=== PATIENT | male | born 1970 | race Caucasian/White ===

== ENCOUNTER 2022-11-09 19:57 | Inpatient (IN) | payer OTHER, SELFPAY ==
--- NOTE | ~2022-11-09 | CT_ITS ---
EXAMINATION: CT SOFT TISSUE NECK WITH CONTRAST CLINICAL INFORMATION: Left neck swelling and pain COMPARISON: None. TECHNIQUE: Following the administration of 60 mL of Omnipaque 350 intravenous contrast, helical imaging was performed in the axial plane with generation of coronal and sagittal reformatted images. This CT examination was performed using dose optimization techniques as appropriate, variously including the following: *Automated exposure control. *Adjustment of mA and/or kV according to patient size (this includes techniques or standardized protocols for targeted exams where dose is matched to indication/reason for exam; i.e. extremities or head). *Use of iterative reconstruction technique. DLP: 939 mGy-cm. FINDINGS: Nasopharynx/skull base: The fat planes of the skull base and soft tissues of the nasopharynx are unremarkable. Near complete opacification of the right mastoid air cells and middle ear cavity. Scattered mild paranasal sinus mucosal thickening. The temporomandibular joints are normal. Suprahyoid neck: The oral cavity and bilateral salivary glands are unremarkable. There is ill-defined submucosal edema involving the left pharyngeal wall at the junction of the oropharynx and hypopharynx (series 2 image 78) and involving the left aryepiglottic fold with effacement of the left piriform sinus. There is some mild adjacent inflammatory changes of the left parapharyngeal fat. No discrete drainable fluid collection is identified. There is enlargement of the palatine tonsils. Infrahyoid neck: The hypopharynx and larynx are unremarkable. No aerodigestive tract mass. Thyroid: The thyroid gland is normal. Lymph nodes: No pathologic lymphadenopathy by size criteria. Asymmetric prominence and number of left-sided cervical lymph nodes. Lung apices: The partially visualized lung apices are clear. Vascular structures: The internal jugular veins are patent. The carotid arteries are not well evaluated due to the degree of arterial contrast opacification Osseous structures: The osseous structures are intact without suspicious focal lesion. Mild to moderate multilevel cervical spondylosis. Other: The imaged portions of the brain parenchyma are unremarkable. CT/CT soft tissue neck w IV con IMPRESSION: Ill-defined submucosal edema involving the left lateral hypopharyngeal wall, epiglottis, aryepiglottic fold with mild inflammatory fat stranding of the parapharyngeal fat which may reflect an acute infectious etiology. No drainable fluid collection in the neck is identified. There are no pathologically enlarged cervical lymph nodes however asymmetric prominence of the left cervical lymph nodes are likely reactive. Bilateral tonsillar enlargement is also likely reactive. No evidence of peritonsillar abscess. Above impression was communicated to DARIAN Smith on 11/09/2022 at 10:45 PM.
--- NOTE | ~2022-11-09 | CT_ITS ---
EXAMINATION: CT SOFT TISSUE NECK WITH CONTRAST CLINICAL INFORMATION: Left neck swelling and pain COMPARISON: CT of the neck 11/09/2022 TECHNIQUE: Following the intravenous administration of 60 mL of Omnipaque 350 intravenous contrast, helical imaging was performed in the axial plane with generation of coronal and sagittal reformatted images. This CT examination was performed using dose optimization techniques as appropriate, variously including the following: *Automated exposure control *Adjustment of mA and/or kV according to patient size (this includes techniques or standardized protocols for targeted exams where dose is matched to indication/reason for exam; i.e. extremities or head) *Use of iterative reconstruction technique DLP: 333 mGy-cm FINDINGS: Suboptimal contrast opacification. Redemonstrated submucosal edema and swelling in the region of the left lateral hypopharynx with effacement of the piriform sinus and extending along the left aryepiglottic fold and left aspect of the epiglottis. Overall, the extent of the changes are similar to prior however, there is new mild inflammatory fat stranding extending posterior to the hypopharynx in the retropharyngeal space as well as laterally series 2 image 84 and image 83. Normal appearance of the glottis and subglottic trachea. Similar narrowing of the airway caliber at the level of the hypopharynx. Major salivary glands and thyroid gland are unremarkable. Unchanged appearance of few prominent upper cervical lymph nodes multiple small subcentimeter short axis dimension and lower cervical lymph nodes. No loculated fluid collection to suggest abscess. Some asymmetric enlargement and subtle low-density in the left pontine tonsil, possibly phlegmon or developing small abscess. Globes and retro-orbital structures are intact. Visualized intracranial contents grossly unremarkable, limited assessment. Visualized upper lungs appear clear. Mild mucosal thickening within ethmoid sinuses, maxillary sinuses and left sphenoid sinus. Right mastoid and middle ear effusions redemonstrated. No bony septal destruction. No acute fracture or suspicious osseous lesion. Moderate multilevel cervical spondylosis at C4-C5 through C6-C7. CT/CT soft tissue neck w IV con IMPRESSION: 1. Redemonstrated submucosal edema and swelling in the region of the left lateral hypopharynx extending along the left aryepiglottic fold and left aspect of the epiglottis, overall similar in extent to prior, however there is new mild inflammatory fat stranding extending lateral and posterior to the left hypopharynx into the retropharyngeal space. Findings presumably represent acute inflammatory or infectious process. 2. No formed/loculated fluid collection to suggest abscess. 3. Unchanged mild upper cervical lymphadenopathy, likely reactive. 4. Unchanged right mastoid and middle ear effusions. 5. Mild asymmetric prominence of the left palatine tonsil with subtle low-density consistent with tonsillar inflammation possibly phlegmon or early developing peritonsillar abscess.
[2022-11-09 20:17] VITALS: BP 150/103; PULSE 100; RESP 20; TEMP 36.8; O2SAT 96; BMI 39.4
--- NOTE | 2022-11-09 20:21 | ED.URI ---
HPI - URI/Sore Throat General Chief Complaint: General Medical <Carrie Rivera NP - Last Filed: 11/09/22 20:29> Stated Complaint: swollen glands, difficulty breathing <Carrie Rivera NP - Last Filed: 11/09/22 20:29> Time Seen by Provider: 11/09/22 22:28 <Carrie Rivera NP - Last Filed: 11/09/22 20:29> Source: patient <Anamaria Leal NP - Last Filed: 11/10/22 03:23> Mode of arrival: ambulatory <ZOË Hernandez Last Filed: 11/10/22 03:23> Limitations: no limitations <ZOË Hernandez Last Filed: 11/10/22 03:23> History of Present Illness HPI Narrative: 52-year-old male presents with 3 days of sore throat, left-sided neck swelling, and change in voice. He states that it is difficult to swallow, and that he has been coughing every time he tried to swallow saliva. He does not report fevers or chills, nausea, vomiting, abdominal pain, chest pain or pressure, palpitations, and weakness. <Anamaria Leal NP - Last Filed: 11/10/22 03:23> MD elicited complaint: cough and sore throat <Anamaria Leal NP - Last Filed: 11/10/22 03:23> Onset (ago): day(s) (3) <Anamaria Leal NP - Last Filed: 11/10/22 03:23> Consistency: constant and progressively worsening <Anamaria Leal NP - Last Filed: 11/10/22 03:23> Severity: severe <ZOË Hernandez Last Filed: 11/10/22 03:23> Pain scale (0-10): 9 <Anamaria Leal NP - Last Filed: 11/10/22 03:23> Description of mucous: clear <Anamaria Leal NP - Last Filed: 11/10/22 03:23> Able to tolerate fluids by mouth: No <ZOË Hernandez Last Filed: 11/10/22 03:23> Exacerbating factors: swallowing and speaking <ZOË Hernandez Last Filed: 11/10/22 03:23> Relieving factors: nothing <ZOË Hernandez Last Filed: 11/10/22 03:23> Associated symptoms: voice changes, sore throat and cough <ZOË Hernandez Last Filed: 11/10/22 03:23> Treatments prior to arrival: cold medicine <ZOË Hernandez Last Filed: 11/10/22 03:23> Related Data Home Medications: Home Medications Medication Instructions Recorded Confirmed benazepril 40 mg tablet 1 tab PO DAILY 11/10/22 11/10/22 glipizide 5 mg-metformin 500 mg 1 tab PO BID 11/10/22 11/10/22 tablet hydrochlorothiazide 25 mg tablet 1 tab PO DAILY 11/10/22 11/10/22 <ZOË Carmen Last Filed: 11/09/22 20:29> Allergies/Adverse Reactions: Allergies Allergy/AdvReac Type Severity Reaction Status Date / Time albuterol Allergy Swelling Verified 11/09/22 20:26 <ZOË Carmen Last Filed: 11/09/22 20:29> Review of Systems Review of Systems: Constitutional: No Fever, No Chills ENT/Mouth: No Ear Pain, positive voice change, positive sore throat Eyes: No Eye Pain, No Swelling, No Redness, No Foreign Body Cardiovascular: No Chest Pain, No SOB Respiratory: Positive Cough, No Dyspnea Gastrointestinal: No Nausea, No Vomiting, No Diarrhea, No abdominal Pain Genitourinary: No Dysuria, No Hematuria Musculoskeletal: No joint pain, No Myalgias, No Joint Swelling Skin: No Skin lacerations, No rash Neuro: No Weakness, No Numbness, No Dizziness, No Headache <ZOË Hernandez Last Filed: 11/10/22 03:23> Yes all other systems are reviewed and are negative <ZOË Hernandez Last Filed: 11/10/22 03:23> [facility] Past Medical History Attestation statement: The following information was validated with the patient. <ZOË Hernandez Last Filed: 11/10/22 03:23> Source: old records reviewed <ZOË Hernandez Filed: 11/10/22 03:23> Social History Social History: Social History Household Members: Family Housing: House Do you presently have visiting nurse or other home services: No Patient Tobacco Use Status: Current everyday Tobacco user Use of substances other than those prescribed or required for medical reasons: No Substance Use Type: Marijuana Substance Use Frequency: Daily Have you been hit, kicked, punched, or otherwise hurt by someone within the past year? If so, by whom?: No Do you feel safe in your current relationship?: Yes Is there a partner from a previous relationship who is making you feel unsafe now?: No Are you made to feel afraid or neglected: No Advance Directives: No Advance Directives Information Provided: No Do you have thoughts of harming others: None Do you have a plan to hurt others: No Plan Recently lost weight without trying: No Nutrition Risks: Difficulty swallowing Poor oral hygiene: No <Carrie Rivera NP - Last Filed: 11/09/22 20:29> Physical Exam Vital Signs: Vital Signs: Last Vital Signs Temp 97.6 F 11/09/22 23:33 Pulse 84 11/10/22 02:54 Resp 15 11/10/22 02:54 BP 141/98 H 11/10/22 02:54 Pulse Ox 95 11/10/22 02:54 O2 Del Method 11/10/22 02:54 BMI result Body Mass Index 39.4 <Carrie Rivera NP - Last Filed: 11/09/22 20:29> Vital Signs: Last Vital Signs Temp 97.6 F 11/09/22 23:33 Pulse 84 11/10/22 02:54 Resp 15 11/10/22 02:54 BP 141/98 H 11/10/22 02:54 Pulse Ox 95 11/10/22 02:54 O2 Del Method 11/10/22 02:54 BMI result Body Mass Index 39.4 <Anamaria Leal NP - Last Filed: 11/10/22 03:23> Appearance: Alert. Oriented X3. Moderate distress. Eyes: Pupils equal, round and reactive to light. ENT: Bilateral tonsillar swelling, hot potato voice. Centor scale 4. Mallampati 4. Bilateral neck swelling with cervical lymphadenopathy. No mastoid tender Neck: Neck supple. No vertebral tenderness or step-offs. CVS: Tachycardic heart rate and rhythm. Pulses normal. Respiratory: No respiratory distress. Lung sounds clear. No tracheal stridor. Abdomen: Soft and nontender. Skin: Skin warm and dry. Normal skin color. Normal skin turgor. Extremities: No lower extremity edema. Gait balance and coordinated. Neuro: No motor deficit. No sensory deficit. Cranial nerves 2-12 intact. <Anamaria Leal NP - Last Filed: 11/10/22 03:23> Course Course Course Narrative: This is a rapid medical exam. Deferred additional HPI, ROS, PE to primary provider. 52 yo male DM, HTN here with swollen glands, left sided sore throat/neck swelling x 3 days. Patient reports when he lays flat he has difficulty tolerating his secretions. He has not had any fevers or chills. On exam patient had left neck swelling, bilateral tonsillar erythema/swelling L>R. Patient to brought in to ER. Ordered labs, viral testing, CT soft tissue neck. <Carrie Rivera ROOF PROMENADE TILE SETTER - Last Filed: 11/09/22 20:29> This is a rapid medical exam. Deferred additional HPI, ROS, PE to primary provider. 52 yo male DM, HTN here with swollen glands, left sided sore throat/neck swelling x 3 days. Patient reports when he lays flat he has difficulty tolerating his secretions. He has not had any fevers or chills. On exam patient had left neck swelling, bilateral tonsillar erythema/swelling L>R. Patient to brought in to ER. Ordered labs, viral testing, CT soft tissue neck. 52-year-old male presents for sore throat, and neck swelling. States that he has a difficult time swallowing, and feels like he is choking. Was given dexamethasone by provider in triage, states that his swallowing is a little better. He does have a hot potato voice, Mallampati 4, Centor scale for, tonsils are so swollen and erythematous that they are touching. Has posterior anterior cervical lymphadenopathy. No mastoid tenderness. Has full range of motion to his neck. CT scan of soft tissue neck is pending. White count is 17.0, order for ceftriaxone and fluids. Radiologist called to discuss findings, no indication of abscess however there is edema of the hypopharynx and epiglottis concerning for possible epiglottitis and severe pharyngitis. I did discuss this case with hospitalist, hospitalist feels uncomfortable accepting this patient due to high risk of airway obstruction. Discussion with data entry manager, Dr. Ayoub, discussed white count of 17.0, and CT findings, plan of care is to admit to ICU. Courtesy Car Driver PA at bedside, requesting Zosyn and vancomycin, ordered. I did discuss findings with patient, I discussed the concern for high risk of airway obstruction. Plan of care is to admit to ICU. <Anamaria Leal NP - Last Filed: 11/10/22 03:23> Consultations Consultation #1: Anitra <Anamaria Leal NP - Last Filed: 11/10/22 03:23> Medications Administered Generic Name Dose Route Start Last Admin Trade Name Freq PRN Reason Stop Dose Admin Enoxaparin Sodium 40 mg 11/10/22 00:30 11/10/22 00:56 Enoxaparin Sodium 40 Mg/0.4 Ml Syringe SUBCUT 40 mg Q24H SWAPNA Administration Sodium Chloride 1,000 mls @ 100 mls/hr 11/10/22 00:30 11/10/22 00:51 Ns IVCONT 100 mls/hr .Q10H SWAPNA Administration Insulin Human Lispro 0 unit 11/09/22 23:45 11/10/22 01:07 Insulin Lispro 100 Unit/Ml 3 Ml Vial SUBCUT Not Given Q6H SWAPNA Protocol Discontinued Medications Generic Name Dose Route Start Last Admin Trade Name Freq PRN Reason Stop Dose Admin Dexamethasone 10 mg 11/09/22 20:25 11/09/22 21:02 Dexamethasone 2 Mg Tablet PO 11/09/22 20:26 10 mg ONCE ONE Administration Sodium Chloride 1,000 mls @ 999 mls/hr 11/09/22 20:25 11/10/22 00:44 Ns IV 11/09/22 21:25 Infused .Q1H1M STA Infusion Sodium Chloride 1,000 mls @ 999 mls/hr 11/09/22 22:30 11/10/22 00:44 Ns IVCONT 11/09/22 23:30 Infused .Q1H1M SWAPNA Infusion Ceftriaxone Sodium 1 gm/ 50 mls @ 100 mls/hr 11/09/22 22:29 11/10/22 00:32 Sodium Chloride IV 11/09/22 22:58 Infused ONCE ONE Infusion Piperacillin Sod/Tazobactam 50 mls @ 100 mls/hr 11/09/22 23:32 11/10/22 00:44 Sod 3.375 gm/ Sodium Chloride IV 11/10/22 00:01 Infused ONCE ONE Infusion Vancomycin HCl 2,000 mg in 520 mls @ 260 mls/hr 11/09/22 23:32 11/10/22 00:51 Vancomycin/Ns IV 11/10/22 01:31 260 mls/hr ONCE ONE Administration Iohexol 100 ml 11/09/22 22:03 11/09/22 22:04 Iohexol 350 Mg/Ml 100 Ml Infus..Btl IV 11/09/22 22:04 65 ml ONCE ONE Administration Ketorolac Tromethamine 30 mg 11/09/22 20:25 11/09/22 21:02 Ketorolac Tromethamine 30 Mg/Ml Vial IVPUSH 11/09/22 20:26 30 mg ONCE ONE Administration <Carrie Rivera ROOF PROMENADE TILE SETTER - Last Filed: 11/09/22 20:29> Medications Administered Generic Name Dose Route Start Last Admin Trade Name Freq PRN Reason Stop Dose Admin Enoxaparin Sodium 40 mg 11/10/22 00:30 11/10/22 00:56 Enoxaparin Sodium 40 Mg/0.4 Ml Syringe SUBCUT 40 mg Q24H SWAPNA Administration Sodium Chloride 1,000 mls @ 100 mls/hr 11/10/22 00:30 11/10/22 00:51 Ns IVCONT 100 mls/hr .Q10H SWAPNA Administration Insulin Human Lispro 0 unit 11/09/22 23:45 11/10/22 01:07 Insulin Lispro 100 Unit/Ml 3 Ml Vial SUBCUT Not Given Q6H [facility] Protocol Discontinued Medications Generic Name Dose Route Start Last Admin Trade Name Freq PRN Reason Stop Dose Admin Dexamethasone 10 mg 11/09/22 20:25 11/09/22 21:02 Dexamethasone 2 Mg Tablet PO 11/09/22 20:26 10 mg ONCE ONE Administration Sodium Chloride 1,000 mls @ 999 mls/hr 11/09/22 20:25 11/10/22 00:44 Ns IV 11/09/22 21:25 Infused .Q1H1M STA Infusion Sodium Chloride 1,000 mls @ 999 mls/hr 11/09/22 22:30 11/10/22 00:44 Ns IVCONT 11/09/22 23:30 Infused .Q1H1M SWAPNA Infusion Ceftriaxone Sodium 1 gm/ 50 mls @ 100 mls/hr 11/09/22 22:29 11/10/22 00:32 Sodium Chloride IV 11/09/22 22:58 Infused ONCE ONE Infusion Piperacillin Sod/Tazobactam 50 mls @ 100 mls/hr 11/09/22 23:32 11/10/22 00:44 Sod 3.375 gm/ Sodium Chloride IV 11/10/22 00:01 Infused ONCE ONE Infusion Vancomycin HCl 2,000 mg in 520 mls @ 260 mls/hr 11/09/22 23:32 11/10/22 00:51 Vancomycin/Ns IV 11/10/22 01:31 260 mls/hr ONCE ONE Administration Iohexol 100 ml 11/09/22 22:03 11/09/22 22:04 Iohexol 350 Mg/Ml 100 Ml Infus..Btl IV 11/09/22 22:04 65 ml ONCE ONE Administration Ketorolac Tromethamine 30 mg 11/09/22 20:25 11/09/22 21:02 Ketorolac Tromethamine 30 Mg/Ml Vial IVPUSH 11/09/22 20:26 30 mg ONCE ONE Administration <Anamaria Leal NP - Last Filed: 11/10/22 03:23> Medical Decision Making Differential Diagnosis Differential Diagnoses: The differential diagnosis associated with the presentation includes <Anamaria Leal NP - Last Filed: 11/10/22 03:23> Pharyngitis, epiglottitis, peritonsillar abscess, angioedema <Anamaria Leal NP - Last Filed: 11/10/22 03:23> Admission/Observation Consideration of admission/observation: Escalation of care including admission/observation considered <Anamaria Leal NP - Last Filed: 11/10/22 03:23> Patient requires admission <Anamaria Leal NP - Last Filed: 11/10/22 03:23> Consult Healthcare Provider Management of the patient was discussed with: Hospitalist and Classics Teacher <Anamaria Leal NP - Last Filed: 11/10/22 03:23> Courtesy Car Driver <Anamaria Leal ROOF PROMENADE TILE SETTER - Last Filed: 11/10/22 03:23> Lab Data MDM Lab Attestation statement: I reviewed the patient's lab results. <Anamaria Leal ROOF PROMENADE TILE SETTER - Last Filed: 11/10/22 03:23> Result Diagrams: 11/09/22 20:49 11/09/22 20:50 <Carrie Rivera ROOF PROMENADE TILE SETTER - Last Filed: 11/09/22 20:29> Labs: Lab Results 11/09/22 11/09/22 11/09/22 Range/Units 20:49 20:49 20:49 WBC 17.0 H (4.8-10.8) X10*3/uL RBC 5.19 (4.60-5.80) X10*6/uL Hgb 15.5 (14.0-18.0) g/dl Hct 46.1 (42.0-52.0) % MCV 88.8 (80.0-98.0) fL MCH 29.9 (27.0-33.0) pg MCHC 33.6 (31.0-36.0) g/dl RDW 13.2 (11.0-16.0) % Plt Count 242 (160-400) X10*3/uL MPV 9.1 L (9.4-12.4) fL Immature Gran % (Auto) 0.5 H (0.0-0.4) % Neut % (Auto) 66.3 (45-73) % Lymph % (Auto) 25.8 (20-40) % [place] % (Auto) 6.4 (2-11) % Eos % (Auto) 0.7 (0-4) % Baso % (Auto) 0.3 (0-2) % Lymph # (Auto) 4.4 (1.2-4.9) X10*3/uL [place] # (Auto) 1.1 (0.1-1.2) X10*3/uL Eos # (Auto) 0.1 (0.0-0.4) X10*3/uL Baso # (Auto) 0.1 (0.0-0.2) X10*3/uL Abs Immat Gran (auto) 0.09 H (0.00-0.03) X10*3/uL Absolute Neuts (auto) 11.2 H (2.0-8.3) x10*3/uL Absolute Nucleated RBC 0.000 (0.0-0.012) X10*3/uL Nucleated RBC % (auto) 0.0 (0.0-0.2) /100WBC Smear Tech's Comments VERIFIED Sodium (135-145) mmol/L Potassium (3.3-5.1) mmol/L Chloride (96-108) mmol/L Carbon Dioxide (22-29) mmol/L Anion Gap (12-20) BUN (9-16) mg/dL Creatinine (0.5-1.4) mg/dL Estim Creat Clear Calc Estimated GFR Random Glucose (60-115) mg/dL Lactic Acid 1.0 (0.5-2.0) mmol/L Calcium (8.4-10.2) mg/dL Total Bilirubin (0.0-1.0) mg/dL Direct Bilirubin (0.0-0.5) mg/dL AST (5-37) U/L ALT (0-40) U/L Alkaline Phosphatase (39-117) U/L Total Protein (6.5-8.0) g/dL Albumin (3.5-5.0) g/dL Monoscreen Negative (Negative) Influenza Type A (PCR) (Negative) Influenza Type B (PCR) (Negative) RSV RNA Qual (PCR) (Negative) SARS-CoV-2 RNA (RT-PCR) (Negative) S. pyogenes GrpA REMA (Negative) 11/09/22 11/09/22 11/09/22 Range/Units 20:50 20:50 20:56 WBC (4.8-10.8) X10*3/uL RBC (4.60-5.80) X10*6/uL Hgb (14.0-18.0) g/dl Hct (42.0-52.0) % MCV (80.0-98.0) fL MCH (27.0-33.0) pg MCHC (31.0-36.0) g/dl RDW (11.0-16.0) % Plt Count (160-400) X10*3/uL MPV (9.4-12.4) fL Immature Gran % (Auto) (0.0-0.4) % Neut % (Auto) (45-73) % Lymph % (Auto) (20-40) % [place] % (Auto) (2-11) % Eos % (Auto) (0-4) % Baso % (Auto) (0-2) % Lymph # (Auto) (1.2-4.9) X10*3/uL [place] # (Auto) (0.1-1.2) X10*3/uL Eos # (Auto) (0.0-0.4) X10*3/uL Baso # (Auto) (0.0-0.2) X10*3/uL Abs Immat Gran (auto) (0.00-0.03) X10*3/uL Absolute Neuts (auto) (2.0-8.3) x10*3/uL Absolute Nucleated RBC (0.0-0.012) X10*3/uL Nucleated RBC % (auto) (0.0-0.2) /100WBC Smear Tech's Comments Sodium 137 (135-145) mmol/L Potassium 4.8 (3.3-5.1) mmol/L Chloride 101 (96-108) mmol/L Carbon Dioxide 21 L (22-29) mmol/L Anion Gap 20 (12-20) BUN 22 H (9-16) mg/dL Creatinine 1.13 (0.5-1.4) mg/dL Estim Creat Clear Calc 115.3 Estimated GFR > 60 Random Glucose 146 H (60-115) mg/dL Lactic Acid (0.5-2.0) mmol/L Calcium 9.3 (8.4-10.2) mg/dL Total Bilirubin 0.4 (0.0-1.0) mg/dL Direct Bilirubin < 0.2 (0.0-0.5) mg/dL AST 25 (5-37) U/L ALT 29 (0-40) U/L Alkaline Phosphatase 78 (39-117) U/L Total Protein 7.7 (6.5-8.0) g/dL Albumin 4.5 (3.5-5.0) g/dL Monoscreen (Negative) Influenza Type A (PCR) NEGATIVE (Negative) Influenza Type B (PCR) NEGATIVE (Negative) RSV RNA Qual (PCR) NEGATIVE (Negative) SARS-CoV-2 RNA (RT-PCR) NEGATIVE (Negative) S. pyogenes GrpA REMA Negative (Negative) 11/09/22 Range/Units 23:00 WBC (4.8-10.8) X10*3/uL RBC (4.60-5.80) X10*6/uL Hgb (14.0-18.0) g/dl Hct (42.0-52.0) % MCV (80.0-98.0) fL MCH (27.0-33.0) pg MCHC (31.0-36.0) g/dl RDW (11.0-16.0) % Plt Count (160-400) X10*3/uL MPV (9.4-12.4) fL Immature Gran % (Auto) (0.0-0.4) % Neut % (Auto) (45-73) % Lymph % (Auto) (20-40) % [place] % (Auto) (2-11) % Eos % (Auto) (0-4) % Baso % (Auto) (0-2) % Lymph # (Auto) (1.2-4.9) X10*3/uL [place] # (Auto) (0.1-1.2) X10*3/uL Eos # (Auto) (0.0-0.4) X10*3/uL Baso # (Auto) (0.0-0.2) X10*3/uL Abs Immat Gran (auto) (0.00-0.03) X10*3/uL Absolute Neuts (auto) (2.0-8.3) x10*3/uL Absolute Nucleated RBC (0.0-0.012) X10*3/uL Nucleated RBC % (auto) (0.0-0.2) /100WBC Smear Tech's Comments Sodium (135-145) mmol/L Potassium (3.3-5.1) mmol/L Chloride (96-108) mmol/L Carbon Dioxide (22-29) mmol/L Anion Gap (12-20) BUN (9-16) mg/dL Creatinine (0.5-1.4) mg/dL Estim Creat Clear Calc Estimated GFR Random Glucose (60-115) mg/dL Lactic Acid 1.1 (0.5-2.0) mmol/L Calcium (8.4-10.2) mg/dL Total Bilirubin (0.0-1.0) mg/dL Direct Bilirubin (0.0-0.5) mg/dL AST (5-37) U/L ALT (0-40) U/L Alkaline Phosphatase (39-117) U/L Total Protein (6.5-8.0) g/dL Albumin (3.5-5.0) g/dL Monoscreen (Negative) Influenza Type A (PCR) (Negative) Influenza Type B (PCR) (Negative) RSV RNA Qual (PCR) (Negative) SARS-CoV-2 RNA (RT-PCR) (Negative) S. pyogenes GrpA REMA (Negative) <Carrie Rivera, ROOF PROMENADE TILE SETTER - Last Filed: 11/09/22 20:29> Lab Results 11/09/22 11/09/22 11/09/22 Range/Units 20:49 20:49 20:49 WBC 17.0 H (4.8-10.8) X10*3/uL RBC 5.19 (4.60-5.80) X10*6/uL Hgb 15.5 (14.0-18.0) g/dl Hct 46.1 (42.0-52.0) % MCV 88.8 (80.0-98.0) fL MCH 29.9 (27.0-33.0) pg MCHC 33.6 (31.0-36.0) g/dl RDW 13.2 (11.0-16.0) % Plt Count 242 (160-400) X10*3/uL MPV 9.1 L (9.4-12.4) fL Immature Gran % (Auto) 0.5 H (0.0-0.4) % Neut % (Auto) 66.3 (45-73) % Lymph % (Auto) 25.8 (20-40) % [place] % (Auto) 6.4 (2-11) % Eos % (Auto) 0.7 (0-4) % Baso % (Auto) 0.3 (0-2) % Lymph # (Auto) 4.4 (1.2-4.9) X10*3/uL [place] # (Auto) 1.1 (0.1-1.2) X10*3/uL Eos # (Auto) 0.1 (0.0-0.4) X10*3/uL Baso # (Auto) 0.1 (0.0-0.2) X10*3/uL Abs Immat Gran (auto) 0.09 H (0.00-0.03) X10*3/uL Absolute Neuts (auto) 11.2 H (2.0-8.3) x10*3/uL Absolute Nucleated RBC 0.000 (0.0-0.012) X10*3/uL Nucleated RBC % (auto) 0.0 (0.0-0.2) /100WBC Smear Tech's Comments VERIFIED Sodium (135-145) mmol/L Potassium (3.3-5.1) mmol/L Chloride (96-108) mmol/L Carbon Dioxide (22-29) mmol/L Anion Gap (12-20) BUN (9-16) mg/dL Creatinine (0.5-1.4) mg/dL Estim Creat Clear Calc Estimated GFR Random Glucose (60-115) mg/dL Lactic Acid 1.0 (0.5-2.0) mmol/L Calcium (8.4-10.2) mg/dL Total Bilirubin (0.0-1.0) mg/dL Direct Bilirubin (0.0-0.5) mg/dL AST (5-37) U/L ALT (0-40) U/L Alkaline Phosphatase (39-117) U/L Total Protein (6.5-8.0) g/dL Albumin (3.5-5.0) g/dL Monoscreen Negative (Negative) Influenza Type A (PCR) (Negative) Influenza Type B (PCR) (Negative) RSV RNA Qual (PCR) (Negative) SARS-CoV-2 RNA (RT-PCR) (Negative) S. pyogenes GrpA REMA (Negative) 11/09/22 11/09/22 11/09/22 Range/Units 20:50 20:50 20:56 WBC (4.8-10.8) X10*3/uL RBC (4.60-5.80) X10*6/uL Hgb (14.0-18.0) g/dl Hct (42.0-52.0) % MCV (80.0-98.0) fL MCH (27.0-33.0) pg MCHC (31.0-36.0) g/dl RDW (11.0-16.0) % Plt Count (160-400) X10*3/uL MPV (9.4-12.4) fL Immature Gran % (Auto) (0.0-0.4) % Neut % (Auto) (45-73) % Lymph % (Auto) (20-40) % [place] % (Auto) (2-11) % Eos % (Auto) (0-4) % Baso % (Auto) (0-2) % Lymph # (Auto) (1.2-4.9) X10*3/uL [place] # (Auto) (0.1-1.2) X10*3/uL Eos # (Auto) (0.0-0.4) X10*3/uL Baso # (Auto) (0.0-0.2) X10*3/uL Abs Immat Gran (auto) (0.00-0.03) X10*3/uL Absolute Neuts (auto) (2.0-8.3) x10*3/uL Absolute Nucleated RBC (0.0-0.012) X10*3/uL Nucleated RBC % (auto) (0.0-0.2) /100WBC Smear Tech's Comments Sodium 137 (135-145) mmol/L Potassium 4.8 (3.3-5.1) mmol/L Chloride 101 (96-108) mmol/L Carbon Dioxide 21 L (22-29) mmol/L Anion Gap 20 (12-20) BUN 22 H (9-16) mg/dL Creatinine 1.13 (0.5-1.4) mg/dL Estim Creat Clear Calc 115.3 Estimated GFR > 60 Random Glucose 146 H (60-115) mg/dL Lactic Acid (0.5-2.0) mmol/L Calcium 9.3 (8.4-10.2) mg/dL Total Bilirubin 0.4 (0.0-1.0) mg/dL Direct Bilirubin < 0.2 (0.0-0.5) mg/dL AST 25 (5-37) U/L ALT 29 (0-40) U/L Alkaline Phosphatase 78 (39-117) U/L Total Protein 7.7 (6.5-8.0) g/dL Albumin 4.5 (3.5-5.0) g/dL Monoscreen (Negative) Influenza Type A (PCR) NEGATIVE (Negative) Influenza Type B (PCR) NEGATIVE (Negative) RSV RNA Qual (PCR) NEGATIVE (Negative) SARS-CoV-2 RNA (RT-PCR) NEGATIVE (Negative) S. pyogenes GrpA REMA Negative (Negative) 11/09/22 Range/Units 23:00 WBC (4.8-10.8) X10*3/uL RBC (4.60-5.80) X10*6/uL Hgb (14.0-18.0) g/dl Hct (42.0-52.0) % MCV (80.0-98.0) fL MCH (27.0-33.0) pg MCHC (31.0-36.0) g/dl RDW (11.0-16.0) % Plt Count (160-400) X10*3/uL MPV (9.4-12.4) fL Immature Gran % (Auto) (0.0-0.4) % Neut % (Auto) (45-73) % Lymph % (Auto) (20-40) % [place] % (Auto) (2-11) % Eos % (Auto) (0-4) % Baso % (Auto) (0-2) % Lymph # (Auto) (1.2-4.9) X10*3/uL [place] # (Auto) (0.1-1.2) X10*3/uL Eos # (Auto) (0.0-0.4) X10*3/uL Baso # (Auto) (0.0-0.2) X10*3/uL Abs Immat Gran (auto) (0.00-0.03) X10*3/uL Absolute Neuts (auto) (2.0-8.3) x10*3/uL Absolute Nucleated RBC (0.0-0.012) X10*3/uL Nucleated RBC % (auto) (0.0-0.2) /100WBC Smear Tech's Comments Sodium (135-145) mmol/L Potassium (3.3-5.1) mmol/L Chloride (96-108) mmol/L Carbon Dioxide (22-29) mmol/L Anion Gap (12-20) BUN (9-16) mg/dL Creatinine (0.5-1.4) mg/dL Estim Creat Clear Calc Estimated GFR Random Glucose (60-115) mg/dL Lactic Acid 1.1 (0.5-2.0) mmol/L Calcium (8.4-10.2) mg/dL Total Bilirubin (0.0-1.0) mg/dL Direct Bilirubin (0.0-0.5) mg/dL AST (5-37) U/L ALT (0-40) U/L Alkaline Phosphatase (39-117) U/L Total Protein (6.5-8.0) g/dL Albumin (3.5-5.0) g/dL Monoscreen (Negative) Influenza Type A (PCR) (Negative) Influenza Type B (PCR) (Negative) RSV RNA Qual (PCR) (Negative) SARS-CoV-2 RNA (RT-PCR) (Negative) S. pyogenes GrpA REMA (Negative) <Anamaria Leal NP - Last Filed: 11/10/22 03:23> Independent Interpretation I performed an independent interpretation of an: CT Scan <Anamaria Leal NP - Last Filed: 11/10/22 03:23> Radiology Impression Discussion of test interpretation with radiology: I have reviewed the radiologist's reading. <Anamaria Leal NP - Last Filed: 11/10/22 03:23> Radiologist Impression: FINDINGS: Nasopharynx/skull base: The fat planes of the skull base and soft tissues of the nasopharynx are unremarkable. Near complete opacification of the right mastoid air cells and middle ear cavity. Scattered mild paranasal sinus mucosal thickening. The temporomandibular joints are normal. Suprahyoid neck: The oral cavity and bilateral salivary glands are unremarkable. There is ill-defined submucosal edema involving the left pharyngeal wall at the junction of the oropharynx and hypopharynx (series 2 image 78) and involving the left aryepiglottic fold with effacement of the left piriform sinus. There is some mild adjacent inflammatory changes of the left parapharyngeal fat. No discrete drainable fluid collection is identified. There is enlargement of the palatine tonsils. Infrahyoid neck: The hypopharynx and larynx are unremarkable. No aerodigestive tract mass. Thyroid: The thyroid gland is normal. Lymph nodes: No pathologic lymphadenopathy by size criteria. Asymmetric prominence and number of left-sided cervical lymph nodes. Lung apices: The partially visualized lung apices are clear. Vascular structures: The internal jugular veins are patent. The carotid arteries are not well evaluated due to the degree of arterial contrast opacification Osseous structures: The osseous structures are intact without suspicious focal lesion. Mild to moderate multilevel cervical spondylosis. Other: The imaged portions of the brain parenchyma are unremarkable. CT/CT soft tissue neck w IV con IMPRESSION: ? Ill-defined submucosal edema involving the left lateral hypopharyngeal wall, epiglottis, aryepiglottic fold with mild inflammatory fat stranding of the parapharyngeal fat which may reflect an acute infectious etiology. No drainable fluid collection in the neck is identified. ? There are no pathologically enlarged cervical lymph nodes however asymmetric prominence of the left cervical lymph nodes are likely reactive. Bilateral tonsillar enlargement is also likely reactive. No evidence of peritonsillar abscess. ? Above impression was communicated to DARIAN Hernandez on 11/09/2022 at 10:45 PM. <Anamaria Leal NP - Last Filed: 11/10/22 03:23> External Record Review No prior records at this facility <Anamaria Leal NP - Last Filed: 11/10/22 03:23> Critical Care Time Critical Care Time Critical Care Time: Yes <Anamaria Leal NP - Last Filed: 11/10/22 03:23> Total Critical Care Time: 45 <Anamaria Leal NP - Last Filed: 11/10/22 03:23> Attestation: I have personally provided critical care time exclusive of time spent on separately billable procedures. Time includes review of laboratory data, radiology results, discussion with consultants, and monitoring for potential decompensation. Interventions were performed as documented. <ZOË Hernandez Last Filed: 11/10/22 03:23> Discharge Plan Discharge Clinical Impression: Pharyngitis, Acute epiglottitis <Carrie Rivera NP - Last Filed: 11/09/22 20:29> Patient Disposition: Admitted As Inpatient <Carrie Rivera NP - Last Filed: 11/09/22 20:29> Interventions: Admission Worksheet (ED) Last Done: 11/10/22 00:30 <Carrie Rivera NP - Last Filed: 11/09/22 20:29> Discharge Date/Time: 11/10/22 00:35 <Carrie Rivera NP - Last Filed: 11/09/22 20:29>
[2022-11-09 20:56] LABS: Basophils Absolute Auto 0.1 X10*3/uL (0.0-0.2); Basophils Percent Auto 0.3 % (0-2); Hemoglobin 15.5 g/dl (14.0-18.0); Imm Gran Pct Auto 0.5 % (0.0-0.4); MANUAL DIFF FLAG SCAN; Monocytes Percent Auto 6.4 % (2-11); PLT CLUMP 1; SCAN SMEAR FLAG 1
[2022-11-09 20:58] LABS: Eosinophils Absolute Auto 0.1 X10*3/uL (0.0-0.4); Eosinophils Percent Auto 0.7 % (0-4); Hematocrit 46.1 % (42.0-52.0); Imm Gran Abs Auto 0.09 X10*3/uL (0.00-0.03); Lymphocytes Absolute Auto 4.4 X10*3/uL (1.2-4.9); Lymphocytes Percent Auto 25.8 % (20-40); Mean Corpuscular HGB Conc 33.6 g/dl (31.0-36.0); Mean Corpuscular Hemoglobin 29.9 pg (27.0-33.0); Mean Corpuscular Volume 88.8 fL (80.0-98.0); Mean Platelet Volume 9.1 fL (9.4-12.4); Monocytes Absolute Auto 1.1 X10*3/uL (0.1-1.2); Neutrophils Absolute Auto 11.2 x10*3/uL (2.0-8.3); Neutrophils Percent Auto 66.3 % (45-73); Red Blood Count 5.19 X10*6/uL (4.60-5.80); Red Cell Distribution Width 13.2 % (11.0-16.0)
[2022-11-09] MEDS: dexAMETHasone 2 MG TABLET 10 MG PO (21:02)
[2022-11-09] MEDS: Ketorolac Tromethamine 30 MG/ML VIAL IVPUSH (21:02)
[2022-11-09] MEDS: 0.9 % Sodium Chloride 1,000 ML 999 ML IV (21:05)
[2022-11-09 21:18] LABS: IDNOW Serial# 08D9AD1C; Strep A Nucleic Acid Negative (Negative)
[2022-11-09 21:21] LABS: Platelet Count 242 X10*3/uL (160-400)
[2022-11-09 21:22] LABS: SLIDE REVIEW VERIFIED
[2022-11-09 21:33] LABS: Influenza A PCR NEGATIVE (Negative); Influenza B PCR NEGATIVE (Negative); Resp Syncy Virus RNA Qual PCR NEGATIVE (Negative); SARS COV2 PCR INHOUSE NEGATIVE (Negative)
[2022-11-09 21:37] LABS: Alanine Aminotransferase 29 U/L (0-40); Albumin Level 4.5 g/dL (3.5-5.0); Alkaline Phosphatase 78 U/L (39-117); Anion Gap 20 (12-20); Aspartate Amino Transferase 25 U/L (5-37); Bilirubin Direct < 0.2 mg/dL (0.0-0.5); Bilirubin Total 0.4 mg/dL (0.0-1.0); Blood Urea Nitrogen 22 mg/dL (9-16); Calcium 9.3 mg/dL (8.4-10.2); Carbon Dioxide 21 mmol/L (22-29); Chloride 101 mmol/L (96-108); Creatinine Clr Calc Pharmacy 115.3; Estimated Glomerular Filt Rate > 60; Glucose Random 146 mg/dL (60-115); Potassium 4.8 mmol/L (3.3-5.1); Sodium 137 mmol/L (135-145); Total Protein 7.7 g/dL (6.5-8.0)
[2022-11-09] MEDS: iohexoL 350 MG/ML 100 ML INFUS..BTL IV (22:04)
[2022-11-09 23:18] LABS: Lactic Acid 1.1 mmol/L (0.5-2.0)
[2022-11-09] MEDS: cefTRIAXone sodium 1 GM in 0.9 % Sodium Chloride 50 ML IV (23:25)
[2022-11-09] MEDS: 0.9 % Sodium Chloride 1,000 ML 999 ML IVCONT (23:28)
[2022-11-09 23:33] VITALS: BP 136/89; PULSE 90; RESP 15; TEMP 36.4; O2SAT 96
[2022-11-10] VITALS (12 sets, daily range): BP systolic 125–158; BP diastolic 68–114; PULSE 72–92; RESP 13–17; TEMP 36.4–36.9; O2SAT 91–97; BMI 40.3
[2022-11-10] MEDS: Piperacillin Sodium/Tazobactam 3.375 GM in 0.9 % Sodium Chloride 50 ML IV ×5 (00:10→23:25)
--- NOTE | 2022-11-10 00:13 | P.HPCC_ITS ---
History of Present Illness Date of Service: 11/10/22 Attending physician on admission: Abbe Ayoub Chief Complaint: Epiglottitis/tonsillitis HPI: ?52-year-old male with underlying history of hypertension, diabetes, kidney stones, presents to us after being seen in the emergency room with complaints of sore throat for the past 3 days.? He has been having progressive pain upon trying to swallow his own saliva however he is still able to do so, has some cough on an intermittent manner and has noted some shortness of breath however he does have a history of smoking.? Denies feeling shortness of breath upon exertion , leg edema, chest pain, arm or jaw pain.? Admits having generalized malaise and some chills but no actual fever, denies headache, double or blurry vision, no prior facial, or pharyngeal or any other ENT problems or surgeries.? Patient discomfort is is 6/10 mostly with swallowing, nonradiating, localized, feels that he is in her throat is swollen, nothing makes better, swelling makes the discomfort worse. ? In the ER, he was noted to be normotensive, afebrile, with otherwise normal vital signs, his workup was significant for white count 86466, H&H of 15.5 and 46.1 respectively, platelets 242, sodium 137, potassium 4.8, chloride 101, anion gap 20, BUN 22, creatinine 1.13, lactic acid 1.1.? LFTs normal.? Respiratory panel negative, strep organisms negative, mono screen pending.? A CT of the soft tissue of the neck with IV contrast show Ill-defined submucosal edema involving the left lateral hypopharyngeal wall, epiglottis, aryepiglottic fold with mild inflammatory fat stranding of the parapharyngeal fat which may reflect an acute infectious etiology. No drainable fluid collection in the neck is identified.There are no pathologically enlarged cervical lymph nodes however asymmetric prominence of the left cervical lymph nodes are likely reactive. Bilateral tonsillar enlargement is also likely reactive. No evidence of peritonsillar abscess. ? Currently the patient is not tripoding, no drooling, is not hypoxic, and not tachypneic.? Other than the above-stated during my interview, the patient has no further complaints.? We were asked to admit this patient due to the concern that the inner tissue edema may progress the patient may require intubation and emergent way. ? ? Review of systems: As above, otherwise the patient denies any prior history of strokes, cold intolerance, migraine headaches, head trauma, no eyes, ears or nose problems, , no thyroid disease, denies any history of chest pain, palpitations, coronary disease, no sputum production, pneumonia, bronchitis, COPD or emphysema, abdominal pain, nausea, vomiting, diarrhea, abdominal surgeries, melena, hematochezia, hematemesis, hematuria, liver problems, immunocompromise state of any kind, no history of DVT or PE, leg edema, fractures or extremity surgeries all other review of systems were reviewed and they were all negative. ? Past Medical History:? As above ? Past Surgical History:? None ? Family history:? Noncontributory ? Social History:? Lives at home, admits to drinking socially, social tobacco use and social consumption of marijuana. ? CODE STATUS: FULL CODE ? Allergies: NKDA ? Home Medications: See Med Rec ? PHYSICAL EXAM: VS: ?136/89, 90, 15, 96% on room air, 97.6 F General: ?Patient is not drooling, no tripoding and does not appear to be in any acute distress, there is no evidence of accessory muscle usage. ?Alert oriented x3 no acute distress.? Speaking full sentences, his speech is slightly muffled but understandable, thought process is coherent.? Following all commands. Skin:? Intact, no lesions, edema, erythema, clubbing or cyanosis.? No ulcers. HEENT:? Head is normocephalic, atraumatic, pupils equal round reactive to light accommodation bilaterally.? Extraocular movements appear intact.? Buccal mucosa is moist, patient is able to open her mouth widely, there is some retropharyngeal edema noted, no evidence of pus collection noted with simple inspection. ?Neck is supple without lymphadenopathy. Cardiac:? Clear S1-S2, no murmurs rubs or gallops. Pulmonary:? Clear to auscultation, no wheezes, rales or rhonchi. Abdomen:? Protuberant, positive bowel sounds in all 4 quadrants.? Soft, nontender, no rebound or guarding.? Musculoskeletal:? Moving all 4 extremities upon request a major joints, there is no crepitus or tenderness.? The strength is 5/5 bilaterally and throughout all 4 extremities.? There is no leg edema , no calf tenderness , no leg asymmetry.? Gait not assessed at this point. Neurologic:? As above, cranial nerves 2-12 are grossly intact.? No focal deficits noted. Motor strength as above.? Vascular:? 2+ pulses upper and lower extremities distally. ? SIGNIFICANT LABORATORY DATA:? As above ? REVIEW OF IMAGES: ?As above ? ASSESSMENT : 1. Acute epiglottitis and tonsillitis likely due to HI type B/ although given his age it is likely to be a non H IB source such as strep organisms less likely mononucleosis without evidence of retropharyngeal abscess; there is no evidence of cold sores; otherwise can be of other viral causes. 2. Reactive leukocytosis due to the above. 3. History of hypertension currently well controlled 4. History of diabetes 5. Clinical dehydration and hemoconcentration ? PLAN OF CARE: Plan will be to admit to ICU, monitor vital signs, I and O's, close monitoring to his airway, breathing and for any worsening signs of dysphagia, dysphonia, drooling, distress. If infectious or non infectious causes are ruled out, is worth considering the possibility of this being related to a VAL related angioedema (althought very unlikely as there is edema of the lips, tongue or face. Will place the patient on broad-spectrum antibiotics with vancomycin and Zosyn, and start steroids. Will give him gentle IV fluids for he does have a slight BUN to creatinine mismatch, he appears dehydrated, will be NPO.? Monitor his blood pressure and will start insulin sliding scale for his diabetes. Depending on the patient's development he may or may not need ENT consult. Will re-evaluate in the morning if the patient is stable, he may be able to transition out of the ICU on to a regular floor. ? GI PROPHYLAXIS: ?IV ppi DVT PROPHYLAXIS: ?Lovenox clinical update 11/10/22 06:00am?patient is feeling much better, he is? having very little? discomfort upon swallowing his own saliva but no mechanical problems swallowing.? Denies any shortness of breath.? Clinically speaking he appears much better.? He is phonation is normal as well as word articulation.? There is no evidence of distress. Laboratories? from this morning reveal improve white count to 13,000 from 17,0 00, normal electrolytes. At this point the patient is ready for the next level of care, patient signed out to the hospitalist Dr. Tang ? Critical care time used for critical evaluation of this patient, diagnosis, treatment and coordination of care, review her records and documentation TOTAL CRITICAL CARE TIME?90?? MIN . discussion and coordination with consultants, completely separate from any procedures performed. Patient's care was discussed in detail with Dr. Ayoub.? He is aware of all the above as well as the plan of care for this patient. [facility] Social History Social History Household Members: Family Housing: House Do you presently have visiting nurse or other home services: No Patient Tobacco Use Status: Current everyday Tobacco user Use of substances other than those prescribed or required for medical reasons: No Substance Use Type: Marijuana Substance Use Frequency: Daily Currently Displaying Signs/Symptoms of Drug Intoxication Withdrawal: No Have you been hit, kicked, punched, or otherwise hurt by someone within the past year? If so, by whom?: No Do you feel safe in your current relationship?: Yes Is there a partner from a previous relationship who is making you feel unsafe now?: No Are you made to feel afraid or neglected: No Advance Directives: No Advance Directives Information Provided: No Do you have thoughts of harming others: None Do you have a plan to hurt others: No Plan Recently lost weight without trying: No Nutrition Risks: Difficulty swallowing Poor oral hygiene: No Meds Allergies Allergy/AdvReac Type Severity Reaction Status Date / Time albuterol Allergy Swelling Verified 11/09/22 20:26 Active Medications: Current Medications Dextrose (Dextrose 50 % 25 Gm/50 Ml Syringe) 25 gm IVPUSH Q15M PRN; Protocol PRN Reason: per Hypoglycemia Standing Ord. Glucose (Glucose Gel 15 Gm Gel..Gram.) 15 gm PO Q15M PRN; Protocol PRN Reason: per Hypoglycemia Standing Ord. Vancomycin HCl (Vancomycin/Ns) 2,000 mg in 520 mls @ 260 mls/hr IV ONCE ONE Stop: 11/10/22 01:31 Insulin Human Lispro (Insulin Lispro 100 Unit/Ml 3 Ml Vial) 0 unit SUBCUT Q6H COUNTS INCLUDE 234 BEDS AT THE [facility]; Protocol Pharmacy Consult (Consult Rx Vancomycin Dosing) 1 each MISCELLANE DAILY PRN PRN Reason: Consult order Pharmacy Consult (Consult Rx Perform Med Rec) 1 each MISCELLANE ONCE STA Stop: 11/09/22 23:36 Home Medications Medication Instructions Recorded Confirmed Last Taken Type benazepril 40 mg tablet 1 tab PO DAILY 11/10/22 11/10/22 11/09/22 09:00 History glipizide 5 mg-metformin 500 mg 1 tab PO BID 11/10/22 11/10/22 11/09/22 09:00 History tablet hydrochlorothiazide 25 mg tablet 1 tab PO DAILY 11/10/22 11/10/22 11/09/22 09:00 History Physical Exam Vital Signs: Vital Signs: Last Vital Signs Temp 97.6 F 11/09/22 23:33 Pulse 90 11/09/22 23:33 Resp 15 11/09/22 23:33 BP 136/89 11/09/22 23:33 Pulse Ox 96 11/09/22 23:33 O2 Del Method 11/09/22 23:33 BMI result Body Mass Index 39.4 Results Labs 11/09/22 20:49 11/09/22 20:50 Labs: Laboratory Results - last 24 hr 11/09/22 11/09/22 11/09/22 20:49 20:49 20:50 MCV 88.8 MCH 29.9 MCHC 33.6 RDW 13.2 Plt Count 242 MPV 9.1 L Immature Gran % (Auto) 0.5 H Neut % (Auto) 66.3 Lymph % (Auto) 25.8 [place] % (Auto) 6.4 Eos % (Auto) 0.7 Baso % (Auto) 0.3 Lymph # (Auto) 4.4 [place] # (Auto) 1.1 Eos # (Auto) 0.1 Baso # (Auto) 0.1 Abs Immat Gran (auto) 0.09 H Absolute Neuts (auto) 11.2 H Absolute Nucleated RBC 0.000 Nucleated RBC % (auto) 0.0 Smear Tech's Comments VERIFIED Anion Gap 20 Estim Creat Clear Calc 115.3 Estimated GFR > 60 Random Glucose 146 H Lactic Acid 1.0 Calcium 9.3 Total Bilirubin 0.4 Direct Bilirubin < 0.2 AST 25 ALT 29 Alkaline Phosphatase 78 Total Protein 7.7 Albumin 4.5 Influenza Type A (PCR) Influenza Type B (PCR) RSV RNA Qual (PCR) SARS-CoV-2 RNA (RT-PCR) S. pyogenes GrpA REMA 02/05/2411/09/22 11/09/22 20:50 20:56 23:00 MCV MCH MCHC RDW Plt Count MPV Immature Gran % (Auto) Neut % (Auto) Lymph % (Auto) [place] % (Auto) Eos % (Auto) Baso % (Auto) Lymph # (Auto) [place] # (Auto) Eos # (Auto) Baso # (Auto) Abs Immat Gran (auto) Absolute Neuts (auto) Absolute Nucleated RBC Nucleated RBC % (auto) Smear Tech's Comments Anion Gap Estim Creat Clear Calc Estimated GFR Random Glucose Lactic Acid 1.1 Calcium Total Bilirubin Direct Bilirubin AST ALT Alkaline Phosphatase Total Protein Albumin Influenza Type A (PCR) NEGATIVE Influenza Type B (PCR) NEGATIVE RSV RNA Qual (PCR) NEGATIVE SARS-CoV-2 RNA (RT-PCR) NEGATIVE S. pyogenes GrpA REMA Negative Imaging Radiologist's Impressions: Impressions Soft Tissue Neck CT 11/09/22 22:06 IMPRESSION: Ill-defined submucosal edema involving the left lateral hypopharyngeal wall, epiglottis, aryepiglottic fold with mild inflammatory fat stranding of the parapharyngeal fat which may reflect an acute infectious etiology. No drainable fluid collection in the neck is identified. There are no pathologically enlarged cervical lymph nodes however asymmetric prominence of the left cervical lymph nodes are likely reactive. Bilateral tonsillar enlargement is also likely reactive. No evidence of peritonsillar abscess. Above impression was communicated to DARIAN Smith on 11/09/2022 at 10:45 PM. Assessment and Plan Time Spent With Patient Time: Total time managing care of this patient today ____ minutes.
--- NOTE | 2022-11-10 00:17 | PC.NURSE ---
took over care at 9:00pm pt a&o, no sob or chest pain. pt complaining of throat this comfort when swallowing. pt medicated
--- NOTE | 2022-11-10 00:34 | PC.NURSE ---
Report given to drop wire operator, rohith Child for administration at the unit. Pt is speaking in full sentences no sign for respiratory distress.
[2022-11-10 00:50] LABS: Glucose, Whole Blood 168 mg/dL (60-115)
[2022-11-10] MEDS: 0.9 % Sodium Chloride 1,000 ML 100 ML IVCONT ×3 (00:51→20:32)
[2022-11-10 00:52] LABS: Monotest Negative (Negative)
[2022-11-10] MEDS: Enoxaparin Sodium 40 MG/0.4 ML SYRINGE SUBCUT ×2 (00:56→23:25)
[2022-11-10] MEDS: Pantoprazole Sodium 40 MG/10 ML VIAL IVPUSH (05:32)
[2022-11-10 05:34] LABS: MANUAL DIFF FLAG NO
[2022-11-10 05:37] LABS: Basophils Percent Auto 0.2 % (0-2); Eosinophils Percent Auto 0.1 % (0-4); Hematocrit 42.2 % (42.0-52.0); Hemoglobin 14.1 g/dl (14.0-18.0); Imm Gran Abs Auto 0.09 X10*3/uL (0.00-0.03); Imm Gran Pct Auto 0.7 % (0.0-0.4); Lymphocytes Absolute Auto 1.8 X10*3/uL (1.2-4.9); Lymphocytes Percent Auto 13.2 % (20-40); Mean Corpuscular HGB Conc 33.4 g/dl (31.0-36.0); Mean Corpuscular Hemoglobin 30.3 pg (27.0-33.0); Mean Corpuscular Volume 90.8 fL (80.0-98.0); Mean Platelet Volume 9.4 fL (9.4-12.4); Monocytes Absolute Auto 0.4 X10*3/uL (0.1-1.2); Monocytes Percent Auto 2.6 % (2-11); Neutrophils Absolute Auto 11.1 x10*3/uL (2.0-8.3); Neutrophils Percent Auto 83.2 % (45-73); Platelet Count 209 X10*3/uL (160-400); Red Blood Count 4.65 X10*6/uL (4.60-5.80); Red Cell Distribution Width 13.4 % (11.0-16.0); White Blood Count 13.3 X10*3/uL (4.8-10.8)
[2022-11-10 05:58] LABS: Anion Gap 15 (12-20); Blood Urea Nitrogen 21 mg/dL (9-16); Calcium 8.6 mg/dL (8.4-10.2); Carbon Dioxide 22 mmol/L (22-29); Chloride 106 mmol/L (96-108); Creatinine Clr Calc Pharmacy 130.6; Estimated Glomerular Filt Rate > 60; Glucose Random 168 mg/dL (60-115); Potassium 4.4 mmol/L (3.3-5.1); Sodium 139 mmol/L (135-145)
--- NOTE | 2022-11-10 06:32 | PHA.PROG ---
Admission Date/Time: November 09, 2022 23:36 Indication: RESPIRATORY INFECTION Weight in k.3 kg Adjusted body weight in [place] body weight in K.5 Obesity Dosing Indication % IBW: OBESE Serum Creatinine - Last 168 Hours 11/09/22 11/10/22 20:50 04:57 Creatinine 1.13 1.01 Estimated CrCl and GFR - Last 168 Hours 11/09/22 11/10/22 20:50 04:57 Estim Creat Clear Calc 115.3 130.6 Estimated GFR > 60 > 60 Vancomycin Loading dose:2000 MG Current Vancomycin Dosing Regimen:1000 MG q12h Vancomycin Monitoring using AUC goal of 400 - 600 range with trough as surrogate marker: 444 MG/L/HR Date and Time for next Vancomycin Level to be drawn: 11/11 @1100 Pharmacist Comments on Vancomycin Plan: oBESE MODEL USED Vancomycin dosing will take advantage of [employer] as a clinical decision support tool that uses Bayesian modeling to calculate individual patient's pharmacokinetic parameters and forecast the patient's drug concentration time course with the target goal AUC 24 range of 400 - 600 mg/L/hr.
--- NOTE | 2022-11-10 07:16 | PHA.MEDREC ---
Pharmacy Consult ? Medication Reconciliation Pharmacy has reviewed the medication reconciliation completed by Glenys. Stephania Chinchilla, StormD
[2022-11-10 09:26] LABS: Creatinine Clr Calc Pharmacy 119.9; Estimated Glomerular Filt Rate > 60
--- NOTE | 2022-11-10 09:59 | MHC.CM.PN ---
Met w/pt to discuss d/c planning needs: pt resides w/spouse, states no barriers to care needs and is independent with self care: will call spouse for tranportation to home: Declined HCP completion at this time: vax and boosted x 1.
[2022-11-10 11:35] LABS: Glucose, Whole Blood 220 mg/dL (60-115)
[2022-11-10] MEDS: Insulin Lispro 100 UNIT/ML 3 ML VIAL SUBCUT (12:55)
[2022-11-10] MEDS: vancomycin HCL 1,000 MG in 0.9 % Sodium Chloride 250 ML 270 MG IV ×2 (12:56→23:59)
--- NOTE | 2022-11-10 12:58 | P.EN_ITS ---
Event Note Date of Service: 11/10/22 Event Note: This patient is seen and examined with APC. Lab imaging. wbc improvin bmp seems fine ct neck [id number] submucosal edema involving the left lateral hypopharyngeal wall, epiglottis, aryepiglottic fold with mild inflammatory fat stranding of the parapharyngeal fat which may reflect an acute infectious etiology. Physical exam : similar to icu note patient seems able to swallow better assessment and plan coordinated in APCs note, Agree with the plan in addition: acute epiglotitis vs tonsilitis continue antibiotics, gentle hydration [place] screen, influenza A/B, COVID, strep throat negative. Blood culture pending Morbid obesity: Encouraged to lose weight placed the order for medical reconciliation. Time Spent With Patient Time: Total time managing care of this patient today ____ minutes.
[2022-11-10 17:09] LABS: Glucose, Whole Blood 114 mg/dL (60-115)
[2022-11-10] MEDS: Omeprazole 20 MG CAPSULE.DR PO (17:22)
[2022-11-10] MEDS: hydroCHLOROthiazide 25 MG TABLET PO (17:30)
--- NOTE | 2022-11-10 17:31 | PC.NURSE ---
At 1730 pt was given unscheduled dose of hydrochlorothiazide per MD tovar for first dose , due to HTN 134/80 manually.
[2022-11-10 21:12] LABS: Glucose, Whole Blood 137 mg/dL (60-115)
[2022-11-11 02:49] VITALS: BP 157/85; PULSE 62; RESP 17; TEMP 36.6; O2SAT 95
[2022-11-11] MEDS: Piperacillin Sodium/Tazobactam 3.375 GM in 0.9 % Sodium Chloride 50 ML IV ×3 (05:17→17:59)
[2022-11-11] MEDS: Omeprazole 20 MG CAPSULE.DR PO ×2 (05:17→18:02)
[2022-11-11] MEDS: 0.9 % Sodium Chloride 1,000 ML 100 ML IVCONT (05:25)
[2022-11-11 07:24] VITALS: BP 177/90; PULSE 65; RESP 18; TEMP 36.5; O2SAT 94
[2022-11-11 07:46] LABS: Creatinine Clr Calc Pharmacy 112.7; Estimated Glomerular Filt Rate > 60
[2022-11-11 07:56] LABS: Glucose, Whole Blood 128 mg/dL (60-115)
[2022-11-11] MEDS: hydroCHLOROthiazide 25 MG TABLET PO (08:22)
[2022-11-11] MEDS: Mag&Al/Sim/Diphenhyd/Lidocaine 10 ML ORAL.SUSP PO (08:22)
[2022-11-11 10:35] LABS: Vancomycin Random 7.3 mcg/mL (15-20)
--- NOTE | 2022-11-11 10:43 | HE.PHANOTE ---
VANCOMYCIN DOSING ADDENDUM PATIENTS LEVEL CAME BACK AT 7.3 WHICH IS SUB THERAPEUTIC. INCREASED DOSE TO 1500 MG Q12H. LEVEL TO BE DRAWN AFTER 2 MORE DOSES ON 11/12 @1300. RENAL FUNCTION IS STILL FLUNCTUATING AND WILL BE MONITORED DAILY
[2022-11-11 11:39] LABS: Glucose, Whole Blood 148 mg/dL (60-115)
--- NOTE | 2022-11-11 11:44 | MHC.CM.PN ---
PER MD ROUNDS, PT NOT MEDICALLY CLEARED FOR DC (EPIGLOTTIS VS TONSILLITIS, SOME DIFFICULT WITH SWALLOWING, MONITORING LABS) CM WILL CONTINUE TO FOLLOW
[2022-11-11 11:56] VITALS: BP 182/93; PULSE 79; RESP 18; TEMP 36.6; O2SAT 98
[2022-11-11] MEDS: vancomycin HCL 1,500 MG in 0.9 % Sodium Chloride 500 ML 333.33 MG IV (13:29)
[2022-11-11 13:51] LABS: Hematocrit 39.2 % (42.0-52.0); Hemoglobin 13.2 g/dl (14.0-18.0); Mean Corpuscular HGB Conc 33.7 g/dl (31.0-36.0); Mean Corpuscular Hemoglobin 30.4 pg (27.0-33.0); Mean Corpuscular Volume 90.3 fL (80.0-98.0); Platelet Count 195 X10*3/uL (160-400); Red Blood Count 4.34 X10*6/uL (4.60-5.80); Red Cell Distribution Width 13.2 % (11.0-16.0); White Blood Count 11.4 X10*3/uL (4.8-10.8)
[2022-11-11] MEDS: dexAMETHasone sod phosphate 10 MG/ML VIAL IVPUSH (13:58)
--- NOTE | 2022-11-11 15:26 | P.PNIM_ITS ---
Subjective Subjective Date of Service: 11/12/22 Interval History: possible acute epiglotitis vs tonsilitis Review of Systems Still has throat pain, Intermittent desaturation Denies any chest pain, otherwise sitting comfortable Physical Exam Vital Signs: Vital Signs: Last Vital Signs Temp 97.8 F 11/11/22 11:56 Pulse 79 11/11/22 11:56 Resp 18 11/11/22 11:56 BP 182/93 H 11/11/22 11:56 Pulse Ox 98 11/11/22 11:56 O2 Del Method 11/11/22 11:56 BMI result Body Mass Index 40.3 Appearance: Alert.? Oriented X3.? cvs: rrr, [id number] . res: air entry somewhat diminshed at bases , has few scattered rhonchii abd: no rebound or guarding ,nt, bs present. ext pulses present , no cyanosis . neuro: axo3 , nonfocal. Objective Data Active Medications Dextrose (Dextrose 50 % 25 Gm/50 Ml Vial) 25 gm IVPUSH Q15M PRN; Protocol PRN Reason: per Hypoglycemia Standing Ord. Enoxaparin Sodium (Enoxaparin Sodium 40 Mg/0.4 Ml Syringe) 40 mg SUBCUT Q24H [facility] Last Admin: 11/10/22 23:25 Dose: 40 mg Documented By: SEBASTIAN Glucose (Glucose Gel 15 Gm Gel..Gram.) 15 gm PO Q15M PRN; Protocol PRN Reason: per Hypoglycemia Standing Ord. Hydrochlorothiazide (Hydrochlorothiazide 25 Mg Tablet) 25 mg PO DAILY SWAPNA; Protocol Last Admin: 11/11/22 08:22 Dose: 25 mg Documented By: MERCEDES Piperacillin Sod/Tazobactam (Sod 3.375 gm/ Sodium Chloride) 50 mls @ 100 mls/hr IV Q6H [facility] Last Infusion: 11/11/22 12:36 Dose: 0 mls/hr Documented By: MERCEDES Sodium Chloride (Ns) 1,000 mls @ 100 mls/hr IVCONT .Q10H [facility] Last Admin: 11/11/22 05:25 Dose: 100 mls/hr Documented By: SEBASTIAN Vancomycin HCl 1,500 mg/ (Sodium Chloride) 500 mls @ 333.333 mls/hr IV Q12H [facility] Last Infusion: 11/11/22 15:03 Dose: 0 mls/hr Documented By: MERCEDES Insulin Human Lispro (Insulin Lispro 100 Unit/Ml 3 Ml Vial) 0 unit SUBCUT QIDACHS [facility]; Protocol Last Admin: 11/11/22 11:54 Dose: Not Given Documented By: MERCEDES Non-Admin Reason: No Insulin Coverage Ipratropium [place] (Ipratropium [place] 0.5 Mg/2.5 Ml Solution) 0.5 mg INHALE RQ4H WHILE AWAKE [facility] Lidocaine/Diphenhydr/Alum/Mg/Simeth (Mag&Al/Sim/Diphenhyd/Lidocaine 10 Ml Oral.Susp) 10 ml PO Q4H PRN; Protocol PRN Reason: throat pain Last Admin: 11/11/22 08:22 Dose: 10 ml Documented By: MERCEDES Omeprazole (Omeprazole 20 Mg Capsule.Dr) 20 mg PO BID@0630,1630 [facility] Last Admin: 11/11/22 05:17 Dose: 20 mg Documented By: SEBASTIAN Pharmacy Consult (Consult Rx Vancomycin Dosing) 1 each MISCELLANE DAILY PRN PRN Reason: Consult order Pharmacy Consult (Consult Rx Perform Med Rec) 1 each MISCELLANE ONCE PRN PRN Reason: Consult order Labs 11/11/22 13:34 11/11/22 05:52 Labs: Laboratory Results - last 24 hr 11/10/22 11/10/22 11/11/22 17:05 20:37 05:52 MCV MCH MCHC RDW Plt Count MPV Absolute Nucleated RBC Nucleated RBC % (auto) Estim Creat Clear Calc 112.7 Estimated GFR > 60 POC Glucose 114 137 H Random Vancomycin 11/11/22 11/11/22 11/11/22 07:24 10:06 11:33 MCV MCH MCHC RDW Plt Count MPV Absolute Nucleated RBC Nucleated RBC % (auto) Estim Creat Clear Calc Estimated GFR POC Glucose 128 H 148 H Random Vancomycin 7.3 L 11/11/22 13:34 MCV 90.3 MCH 30.4 MCHC 33.7 RDW 13.2 Plt Count 195 MPV 9.0 L Absolute Nucleated RBC 0.000 Nucleated RBC % (auto) 0.0 Estim Creat Clear Calc Estimated GFR POC Glucose Random Vancomycin Microbiology Microbiology Results: Microbiology 11/10/22 18:14 Throat Culture - Preliminary Throat No Group A Beta-hemolytic Streptococci isolated to date. 11/09/22 23:40 Blood Culture - Preliminary Blood - Venous No growth after 24 hours. 11/09/22 23:00 Blood Culture - Preliminary Blood - Venous No growth after 24 hours. 11/09/22 20:56 Blood Culture - Preliminary Blood - Venous No growth after 24 hours. 11/09/22 20:49 Blood Culture - Preliminary Blood - Venous No growth after 24 hours. Assessment and Plan (1) Pharyngitis: Status: Acute (2) Acute epiglottitis: Status: Acute Plan 52-year-old male with history of diabetes, hypertension-admitted to ICU because of possible acute epiglottitis-difficulty swallowing and sore throat. 1. acute epiglotitis vs tonsilitis: Patient still feeling some throat pain as well as is the saturating intermittently [place] screen, influenza A/B, COVID, strep throat negative. Leukocytosis improving Blood culture pending Discussed with ICU- ct neck: continue antibiotics, gentle hydration, id evaluation added Repeat CT scan reviewed with ICU and ID: Subsequently called for transfer(hospital)-please see discharge summary for detailed information. 2. htn uncontrolled: continue hctz ,hold grisel will add amlodipine . 3. dm: fs with coverage 4. Morbid obesity: Encouraged to lose weight. inaptient need:Please see discharge summary ,patient left AMA Time Spent With Patient Time: Total time managing care of this patient today ____ minutes. Quality Stroke Does the patient have a stroke diagnosis?: No VTE Prior VTE?: No VTE Risk Level:: Medical - moderate - high VTE Device Contraindication: N/A - Device Ordered VTE Drug Contraindication: N/A - Med Ordered
[2022-11-11 15:56] VITALS: BP 162/107; PULSE 82; RESP 20; TEMP 36.8; O2SAT 94
[2022-11-11] MEDS: Ipratropium Bromide 0.5 MG/2.5 ML SOLUTION INHALE (16:02)
[2022-11-11 16:05] VITALS: PULSE 72; RESP 16; O2SAT 95
--- NOTE | 2022-11-11 16:05 | W.PM.IDCN ---
History of Present Illness Data of Consult Service Date: 11/11/22 Requesting physician: Cong De Guzman Primary Care Provider: DO RICK Bhatt Reason for consult: throat pain He presents with three days sore throat and difficulty swallowing. He has no fever or chills. His has rhinorrhea earlier. Review of Systems Review of Systems: Yes all other systems are reviewed and are negative PMFSH Family History Family history: reviewed and not pertinent Social History Social History Household Members: Family Housing: House Do you presently have visiting nurse or other home services: No Patient Tobacco Use Status: Current everyday Tobacco user Use of substances other than those prescribed or required for medical reasons: No Substance Use Type: Marijuana Substance Use Frequency: Daily Currently Displaying Signs/Symptoms of Drug Intoxication Withdrawal: No Have you been hit, kicked, punched, or otherwise hurt by someone within the past year? If so, by whom?: No Do you feel safe in your current relationship?: Yes Is there a partner from a previous relationship who is making you feel unsafe now?: No Are you made to feel afraid or neglected: No Advance Directives: No Advance Directives Information Provided: No Do you have thoughts of harming others: None Do you have a plan to hurt others: No Plan Recently lost weight without trying: No Nutrition Risks: Difficulty swallowing Poor oral hygiene: No Meds Allergies Allergy/AdvReac Type Severity Reaction Status Date / Time albuterol Allergy Swelling Verified 11/09/22 20:26 Active Medications: Current Medications Dextrose (Dextrose 50 % 25 Gm/50 Ml Vial) 25 gm IVPUSH Q15M PRN; Protocol PRN Reason: per Hypoglycemia Standing Ord. Enoxaparin Sodium (Enoxaparin Sodium 40 Mg/0.4 Ml Syringe) 40 mg SUBCUT Q24H [facility] Last Admin: 11/10/22 23:25 Dose: 40 mg Glucose (Glucose Gel 15 Gm Gel..Gram.) 15 gm PO Q15M PRN; Protocol PRN Reason: per Hypoglycemia Standing Ord. Hydrochlorothiazide (Hydrochlorothiazide 25 Mg Tablet) 25 mg PO DAILY SWAPNA; Protocol Last Admin: 11/11/22 08:22 Dose: 25 mg Piperacillin Sod/Tazobactam (Sod 3.375 gm/ Sodium Chloride) 50 mls @ 100 mls/hr IV Q6H [facility] Last Infusion: 11/11/22 12:36 Dose: Infused Sodium Chloride (Ns) 1,000 mls @ 100 mls/hr IVCONT .Q10H [facility] Last Admin: 11/11/22 05:25 Dose: 100 mls/hr Vancomycin HCl 1,500 mg/ (Sodium Chloride) 500 mls @ 333.333 mls/hr IV Q12H [facility] Last Infusion: 11/11/22 15:03 Dose: Infused Lactated Ringer's (Lr) 1,000 mls @ 100 mls/hr IVCONT .Q10H [facility] Insulin Human Lispro (Insulin Lispro 100 Unit/Ml 3 Ml Vial) 0 unit SUBCUT QIDACHS [facility]; Protocol Last Admin: 11/11/22 11:54 Dose: Not Given Ipratropium [place] (Ipratropium [place] 0.5 Mg/2.5 Ml Solution) 0.5 mg INHALE RQ4H WHILE AWAKE [facility] Last Admin: 11/11/22 16:02 Dose: 0.5 mg Lidocaine/Diphenhydr/Alum/Mg/Simeth (Mag&Al/Sim/Diphenhyd/Lidocaine 10 Ml Oral.Susp) 10 ml PO Q4H PRN; Protocol PRN Reason: throat pain Last Admin: 11/11/22 08:22 Dose: 10 ml Omeprazole (Omeprazole 20 Mg Capsule.Dr) 20 mg PO BID@0630,1630 [facility] Last Admin: 11/11/22 05:17 Dose: 20 mg Pharmacy Consult (Consult Rx Vancomycin Dosing) 1 each MISCELLANE DAILY PRN PRN Reason: Consult order Pharmacy Consult (Consult Rx Perform Med Rec) 1 each MISCELLANE ONCE PRN PRN Reason: Consult order Home Medications Medication Instructions Recorded Confirmed Last Taken Type benazepril 40 mg tablet 1 tab PO DAILY 11/10/22 11/10/22 11/09/22 09:00 History glipizide 5 mg-metformin 500 mg 1 tab PO BID 11/10/22 11/10/22 11/09/22 09:00 History tablet hydrochlorothiazide 25 mg tablet 1 tab PO DAILY 11/10/22 11/10/22 11/09/22 09:00 History Physical Exam Vital Signs: Vital Signs: Last Vital Signs Temp 98.3 F 11/11/22 15:56 Pulse 82 11/11/22 15:56 Resp 20 11/11/22 15:56 BP 182/93 H 11/11/22 11:56 Pulse Ox 94 11/11/22 15:56 O2 Del Method 11/11/22 15:56 BMI result Body Mass Index 40.3 Const: General: cooperative HEENT: Other: mouth opening somewhat limited Face and sinus: Yes normal facial exam Mouth: Normal oral and palatal mucosa present Teeth and gingiva: dentition normal Eyes: General: appearance normal, both eyes and all related structures Pupils: Equal, round and reactive pupils present Resp: Effort & Inspection: normal respiratory effort Cardio: Rate: regular rate Rhythm: regular rhythm GI: Palpation (GI): Soft to palpation and nontender : General: Yes no CVA tenderness Back/Spine/Pelvis: Back: no CVA tenderness Skin: General skin exam: no rashes or lesions noted Neuro: General: moves all extremities Cranial nerves: Yes Equal, round and reactive pupils present Extrem: General: Yes normal to inspection Psych: Appearance: grossly normal Results Labs 11/11/22 13:34 11/11/22 05:52 Labs: Short CBC 11/11/22 Range/Units 13:34 WBC 11.4 H (4.8-10.8) X10*3/uL Hgb 13.2 L (14.0-18.0) g/dl Hct 39.2 L (42.0-52.0) % Plt Count 195 (160-400) X10*3/uL BMP 11/11/22 05:52 Creatinine 1.17 Microbiology Microbiology Results: Microbiology 11/10/22 18:14 Throat Throat Culture - Preliminary No Group A Beta-hemolytic Streptococci isolated to date. 11/09/22 23:40 Blood - Venous Blood Culture - Preliminary No growth after 24 hours. 11/09/22 23:00 Blood - Venous Blood Culture - Preliminary No growth after 24 hours. 11/09/22 20:56 Blood - Venous Blood Culture - Preliminary No growth after 24 hours. 11/09/22 20:49 Blood - Venous Blood Culture - Preliminary No growth after 24 hours. Assessment and Plan (1) Pharyngitis: Status: Acute (2) Acute epiglottitis: Status: Acute He has possible strep or staph He has hemophilus influenza also possible Plan Continue piperacillin/tazobactam or Unasyn Stop Vancomycin Po Augmentin for 10 days on discharge. Steroids appropriate Time Spent With Patient Time: Total time managing care of this patient today ____ minutes.
[2022-11-11] MEDS: iohexoL 350 MG/ML 100 ML INFUS..BTL IV (16:58)
[2022-11-11 17:37] LABS: Glucose, Whole Blood 152 mg/dL (60-115)
[2022-11-11] MEDS: Insulin Lispro 100 UNIT/ML 3 ML VIAL SUBCUT (17:40)
[2022-11-11] MEDS: amLODIPine Besylate 5 MG TABLET PO (17:55)
--- NOTE | 2022-11-11 18:01 | P.DS_ITS ---
DS: Providers Provider Date of Service: 11/11/22 Date of admission: 11/09/22 23:36 Primary care physician: Lisbet Schmidt DO Consults: 11/10/22 10:23 Consult to Infectious Diseases Routine Consulting Provider: Letty Salazar Reason for consultation: epiglittis Has provider been notified: No DS: Diagnosis Discharge Diagnosis (1) Pharyngitis: Status: Acute (2) Acute epiglottitis: Status: Acute (3) Tonsillar abscess: Status: Acute DS: Summary Hospital Course Hospital Course: 52-year-old male with underlying history of hypertension, diabetes, kidney stones, presents to us after being seen in the emergency room with complaints of sore throat for the past 3 days.? He has been having progressive pain upon trying to swallow his own saliva however he is still able to do so, has some cough on an intermittent manner and has noted some shortness of breath however he does have a history of smoking.? Denies feeling shortness of breath upon exertion , leg edema, chest pain, arm or jaw pain.? Admits having generalized malaise and some chills but no actual fever, denies headache, double or blurry vision, no prior facial, or pharyngeal or any other ENT problems or surgeries.? Patient discomfort is is 6/10 mostly with swallowing, nonradiating, localized, feels that he is in her throat is swollen, nothing makes better, swelling makes the discomfort worse. ? In the ER, he was noted to be normotensive, afebrile, with otherwise normal vital signs, his workup was significant for white count 98483, H&H of 15.5 and 46.1 respectively, platelets 242, sodium 137, potassium 4.8, chloride 101, anion gap 20, BUN 22, creatinine 1.13, lactic acid 1.1.? LFTs normal.? Respiratory panel negative, strep organisms negative, mono screen pending.? A CT of the soft tissue of the neck with IV contrast show?Ill-defined submucosal edema involving the left lateral hypopharyngeal wall, epiglottis, aryepiglottic fold with mild inflammatory fat stranding of the parapharyngeal fat which may reflect an acute infectious etiology. No drainable fluid collection in the neck is identified.There are no pathologically enlarged cervical lymph nodes however asymmetric prominence of the left cervical lymph nodes are likely reactive. Bilateral tonsillar enlargement is also likely reactive. No evidence of peritonsillar abscess. ? Currently the patient is not tripoding, no drooling, is not hypoxic, and not tachypneic.? Other than the above-stated during my interview, the patient has no further complaints.? We were asked to admit this patient due to the concern that the inner tissue edema may progress the patient may require intubation and emergent way. Hospital course: Patient was admitted to ICU initially due to possible epiglottitis as well as tonsillar inflammation/infection: Started on IV antibiotics,, nebs, steroids- patient still gas intermittently desaturated and also having some difficulty swallowing initially: Given extra steroids today had little improvement but repeat CT scan shows possible tonsillar early abscess : Discussed with ICU and Infectious Disease -CT scan findings are early abcess -considering no ENT backup and may go to repiratory distress -recommended to transfer patient. Patient still feeling some throat pain as well as is the saturating intermittently [place] screen, influenza A/B, COVID, strep throat serolgy negative. Leukocytosis improving Blood culture neg@24hrs Discussed with infectious disease Zosyn is changed to Unasyn for coverage. Call place for [facility]-declined the patient. Another call placed to [facility]-also declined due to full(hospital) [facility] called -awaiting call back([phone]) -night staff d/w jose Hurtado (phone [phone])-reviewed the case including CT scan: Who subsequently recommended no transfer unless patient has any clinically worsening, if clinically worsen then ENT recommended for repeat another CT scan and call him back. 2. htn uncontrolled: continue hctz ,hold grisel added amlodipine . 3. dm: fs with coverage 4. Morbid obesity: Encouraged to lose weight. Above management discussed with the patient in detail and he understand and agreement with the above plan, time spent 50 minute. addm: night staff d/w jose Hurtado (phone [phone])-reviewed the case including CT scan: Who subsequently recommended no transfer unless patient has any clinically worsening, if clinically worsen then ENT recommended for repeat another CT scan and call him back. As per night staff and my attending patient left [facility] medical advise. Time Spent with Patient Time attestation: Total time managing care of this patient today ____ minutes. Discharge coordination time: Greater than 30 minutes Quality: Safe Use of Opioids Does Pt have an Active Cancer Diagnosis on the Problem List?: No Quality: Stroke Does the patient have a stroke diagnosis?: No Physical Exam Vital Signs: Vital Signs: Last Vital Signs Temp 98.3 F 11/11/22 15:56 Pulse 72 11/11/22 16:05 Resp 16 11/11/22 16:05 BP 162/107 H 11/11/22 15:56 Pulse Ox 94 11/11/22 15:56 O2 Del Method 11/11/22 15:56 BMI result Body Mass Index 40.3 overnight left AMA. DS: Data Data Completed and Pending Labs on day of discharge: Laboratory Results - last 24 hr 11/10/22 11/11/22 11/11/22 20:37 05:52 07:24 WBC RBC Hgb Hct MCV MCH MCHC RDW Plt Count MPV Absolute Nucleated RBC Nucleated RBC % (auto) Creatinine 1.17 Estim Creat Clear Calc 112.7 Estimated GFR > 60 POC Glucose 137 H 128 H Random Vancomycin 11/11/22 11/11/22 11/11/22 10:06 11:33 13:34 WBC 11.4 H RBC 4.34 L Hgb 13.2 L Hct 39.2 L MCV 90.3 MCH 30.4 MCHC 33.7 RDW 13.2 Plt Count 195 MPV 9.0 L Absolute Nucleated RBC 0.000 Nucleated RBC % (auto) 0.0 Creatinine Estim Creat Clear Calc Estimated GFR POC Glucose 148 H Random Vancomycin 7.3 L 11/11/22 17:34 WBC RBC Hgb Hct MCV MCH MCHC RDW Plt Count MPV Absolute Nucleated RBC Nucleated RBC % (auto) Creatinine Estim Creat Clear Calc Estimated GFR POC Glucose 152 H Random Vancomycin Preliminary micro results at discharge 11/10/22 18:14 Throat Culture - Preliminary Throat No Group A Beta-hemolytic Streptococci isolated to date. 11/09/22 23:40 Blood Culture - Preliminary Blood - Venous No growth after 24 hours. 11/09/22 23:00 Blood Culture - Preliminary Blood - Venous No growth after 24 hours. 11/09/22 20:56 Blood Culture - Preliminary Blood - Venous No growth after 24 hours. 11/09/22 20:49 Blood Culture - Preliminary Blood - Venous No growth after 24 hours. Imaging Chest x-ray: Radiologist's impression: ITS Impressions Soft Tissue Neck CT 11/09/22 22:06 IMPRESSION: Ill-defined submucosal edema involving the left lateral hypopharyngeal wall, epiglottis, aryepiglottic fold with mild inflammatory fat stranding of the parapharyngeal fat which may reflect an acute infectious etiology. No drainable fluid collection in the neck is identified. There are no pathologically enlarged cervical lymph nodes however asymmetric prominence of the left cervical lymph nodes are likely reactive. Bilateral tonsillar enlargement is also likely reactive. No evidence of peritonsillar abscess. Above impression was communicated to DARIAN Smith on 11/09/2022 at 10:45 PM[address] Tissue [address] 11/11/22 16:59 IMPRESSION: 1. Redemonstrated submucosal edema and swelling in the region of the left lateral hypopharynx extending along the left aryepiglottic fold and left aspect of the epiglottis, overall similar in extent to prior, however there is new mild inflammatory fat stranding extending lateral and posterior to the left hypopharynx into the retropharyngeal space. Findings presumably represent acute inflammatory or infectious process. 2. No formed/loculated fluid collection to suggest abscess. 3. Unchanged mild upper cervical lymphadenopathy, likely reactive. 4. Unchanged right mastoid and middle ear effusions. 5. Mild asymmetric prominence of the left palatine tonsil with subtle low-density consistent with tonsillar inflammation possibly phlegmon or early developing peritonsillar abscess. Discharge Plan Discharge Anticipated Discharge Date/Time: 11/11/22 18:00 Patient Disposition: Left Against Medical Advice Discharge Diagnosis: Acute epiglottitis, tonsillitis-tonsillar inflammation possibly phlegmon or early developing peritonsillar abscess. Referrals: Lisbet Schmidt DO [Primary Care Provider] - 1 Week Discharge Medications: New amoxicillin-pot clavulanate [Augmentin] 500-125 mg tablet 1 tab PO Q12H 7 Days Qty: 14 0RF prednisone 20 mg tablet 40 mg PO DAILY 7 Days Qty: 14 0RF insulin lispro [Humalog U-100 Insulin] 100 unit/mL Solution See Protocol subcut QIDACHS Qty: 10 0RF Protocol: Insulin Correction Scale Less than or equal to 110 ---- Give (units): 0 111 to 150 Give (units): 0 151 to 200 Give (units): 2 201 to 250 Give (units): 4 251 to 300 Give (units): 6 301 to 350 Give (units): 8 Greater than 350 Give (units): 10 Call MD if Blood Glucose > : 350 omeprazole 20 mg Capsule,Delayed Release(Dr/Ec) 20 mg PO BID@0630,1630 Qty: 1 0RF ampicillin-sulbactam 3 gram Recon Soln 3 g IV Q6H Qty: 1 0RF ipratropium bromide 0.02 % Solution 0.5 mg inhalation RQ4H WHILE AWAKE Qty: 62.5 0RF amlodipine 5 mg tablet 5 mg PO DAILY Qty: 1 0RF Continued hydrochlorothiazide 25 mg tablet 1 tab PO DAILY Held benazepril 40 mg tablet 1 tab PO DAILY Hold Instructions: Resume on 11/28/22. glipizide-metformin 5-500 mg tablet 1 tab PO BID Hold Instructions: Resume on 11/28/22. Discharge Orders: Discharge Order (Routine); Ordered 11/12/22 Ordered By: Cong De Guzman Diet: Advance to usual diet Activity on Discharge: As tolerated Care Plan Goals: Patient was admitted to ICU initially due to possible epiglottitis as well as tonsillar inflammation/infection: Started on IV antibiotics,, nebs, steroids-patient still gas intermittently desaturated and also having some difficulty swallowing initially: Given extra steroids today had little improvement but repeat CT scan shows possible tonsillar early abscess : Discussed with ICU and Infectious Disease -CT scan findings are early abcess - considering no ENT backup and may go to repiratory distress -recommended to transfer patient. Discussed with infectious disease Zosyn is changed to Unasyn for coverage. Call place for [facility]-declined , Another call placed to [facility] also declined. [facility] also called at [phone] ( infomation given-they will call back).If they do not call back in next 1 hour or so will call back again. Health Concerns: As above. Plan of Treatment: As above . Assessment: As above. Discharge Date/Time: 11/11/22 19:55
[2022-11-11] MEDS: Lactated Ringers 1,000 ML 100 ML IVCONT (18:02)
[2022-11-11] MEDS: Ampicillin Sodium/Sulbactam Na 3 GM in 0.9 % Sodium Chloride 100 ML IV (18:18)
[2022-11-11] MEDS: dexAMETHasone sod phosphate 4 MG/ML VIAL IVPUSH (19:43)
[2022-11-12 06:09] LABS: Glucose, Whole Blood 160 mg/dL (60-115)
== END 2022-11-11 19:55 | disposition left against medical advice (07) | DRG 113 ==
LOC: HO.ED 23:35 → HO.EDOVER 23:43 → HO.ICU 23:54 → HO.S3 11-10 14:38 → HO.IMC 11-11 18:02
PROVIDERS: Nurse Practitioner Family; Admitting Provider Physician Assistant Medical; Emergency Provider Emergency Medicine Emergency Medical Services; PCP Internal Medicine; Visit Provider Internal Medicine
DX: J05.10 Acute epiglottitis without obstruction (principal); E11.9 Type 2 diabetes mellitus without complications; F17.210 Nicotine dependence, cigarettes, uncomplicated; J02.9 Acute pharyngitis, unspecified; E66.01 Morbid (severe) obesity due to excess calories; Z68.41 Body mass index [BMI] 40.0-44.9, adult; I10 Essential (primary) hypertension; Z20.822 Contact with and (suspected) exposure to COVID-19; Z71.6 Tobacco abuse counseling; Z79.84 Long term (current) use of oral hypoglycemic drugs; Z79.899 Other long term (current) drug therapy
CPT/HCPCS: 0241U; 36415; 70491; 80048; 80076; 80202; 82565; 82947; 83605; 85025; 85027; 86308; 87040; 87070; 87651; 94640; 99285; J0295; J0696; J1100; J1650; J1885; J2543; J3370; J3371; J8540; Q9967

== ENCOUNTER 2024-08-07 11:40 | Emergency (ER) | payer OTHER, SELFPAY ==
--- NOTE | ~2024-08-07 | XR_ITS ---
EXAMINATION: XR ANKLE, LEFT CLINICAL INFORMATION: Ankle pain COMPARISON: None available. TECHNIQUE: AP, lateral, and mortise views of the left ankle. FINDINGS: There is a prominent plantar heel spur with dystrophic calcification in the plantar fascia. There is no evidence for fracture, dislocation or destructive process. The soft tissue shadows of the Achilles tendon and plantar fascia appear preserved. XR/XR ankle LT min 3V IMPRESSION: No acute findings. Electronically signed by: Bear Enriquez MD 08/07/2024 01:23 PM [facility]
[2024-08-07 12:02] VITALS: BP 124/73; PULSE 73; RESP 20; TEMP 36.7; O2SAT 97; BMI 38.7
--- NOTE | 2024-08-07 12:03 | ED.LOWEXIN ---
HPI - Extremity Injury (Lower) General Chief Complaint: Extremity Problem Stated Complaint: l leg inj Related Data Home Medications ?Medication ?Instructions ?Recorded ?Confirmed benazepril 40 mg tablet 1 tab PO DAILY 11/10/22 11/10/22 glipizide 5 mg-metformin 500 mg 1 tab PO BID 11/10/22 11/10/22 tablet hydrochlorothiazide 25 mg tablet 1 tab PO DAILY 11/10/22 11/10/22 Previous Rx's ?Medication ?Instructions ?Recorded amoxicillin 500 mg-potassium 1 tab PO Q12H 7 days #14 tabs 11/11/22 clavulanate 125 mg tablet (Augmentin) prednisone 20 mg tablet 40 mg (2 x 20 mg) PO DAILY 7 days 11/11/22 #14 tabs Allergies Allergy/AdvReac Type Severity Reaction Status Date / Time albuterol Allergy Swelling Verified 08/07/24 12:04 [facility] Social History Social History Household Members: Family Housing: House Do you presently have visiting nurse or other home services: No Patient Tobacco Use Status: Current everyday Tobacco user Substance Use Type: Marijuana Advance Directives: No Advance Directives Information Provided: No Physical Exam Vital Signs: Vital Signs: Last Vital Signs Temp 98.1 F 08/07/24 12:02 Pulse 73 08/07/24 12:02 Resp 20 08/07/24 12:02 BP 124/73 08/07/24 12:02 Pulse Ox 97 08/07/24 12:02 O2 Del Method Room Air 08/07/24 12:02 BMI result Body Mass Index 38.7 Course Course Course Narrative: This is a Rapid Medical Examination (RME) performed by Yolanda Maza PA-C in triage. Full HPI, ROS, assessment and treatment plan per primary provider in the Main ED. 54 yo male here for eval of left ankle pain and swelling since yesterday. was out walking in his friends yard when he felt a pop along the back of his ankle and an odd sensation travel up the back of his left lower leg into his calf. no pain at rest, 5/10 pain w/ standing and ambulating. + exam limited in triage. noted swelling to L ankle. no calf tenderness. ambulating w/ slight limp. Plan: XR left ankle, further eval needed Reevaluation(s) Reevaluation #1: Patient left the emergency department before myself or any of the other clinicians could review or explain physical exam findings, test results, need or lack there of for additional testing, treatment options, or a treatment plan. Discharge Plan Discharge Clinical Impression: Acute ankle pain Patient Disposition: Left W/O Completing Treatment Prescriptions: No Action hydrochlorothiazide 25 mg tablet 1 tab PO DAILY benazepril 40 mg tablet 1 tab PO DAILY glipizide-metformin 5-500 mg tablet 1 tab PO BID amoxicillin-pot clavulanate [Augmentin] 500-125 mg tablet 1 tab PO Q12H 7 Days Qty: 14 0RF prednisone 20 mg tablet 40 mg PO DAILY 7 Days Qty: 14 0RF Discharge Date/Time: 08/07/24 16:22
== END 2024-08-07 16:22 | disposition left against medical advice (07) ==
PROVIDERS: Emergency Provider Emergency Medicine; PCP Internal Medicine
DX: M25.572 Pain in left ankle and joints of left foot (principal)
CPT/HCPCS: 73610; 99281; 99283

== ENCOUNTER → 2025-03-09 07:27 | Outpatient (BNV) | payer OTHER, SELFPAY | PROVIDERS: PCP Internal Medicine; Visit Provider Radiology Diagnostic Radiology | DX: M70.31 Other bursitis of elbow, right elbow (principal) | CPT/HCPCS: 73080 ==

== ENCOUNTER 2025-03-09 08:09 | Emergency (ER) | payer OTHER, SELFPAY ==
--- NOTE | ~2025-03-09 | XR_ITS ---
CLINICAL HISTORY: swollen painful, no trauma 3 view right elbow Comparison: None Findings: No significant arthritic change or erosions. No joint effusion. No radiopaque foreign body. There is significant soft tissue swelling over the olecranon and olecranon bursitis is not excluded. An olecranon osteophyte is present. Corticated bony fragments are seen adjacent to the olecranon process and lateral epicondyle. 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 IMPRESSION: 1. 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 2. Multiple corticated bony fragments adjacent to the lateral epicondyle and olecranon process. 3. Soft tissue edema overlying the olecranon process and proximal ulna. Bursitis is not excluded. This document has been electronically signed by: Toni Coley MD on 03/09/2025 08:43:08
[2025-03-09 08:12] VITALS: BP 115/75; PULSE 87; RESP 19; TEMP 36.6; O2SAT 97; BMI 37.7
[2025-03-09 08:47] LABS: MANUAL DIFF FLAG NO
[2025-03-09 08:51] LABS: Basophils Percent Auto 0.2 % (0-2); Eosinophils Absolute Auto 0.1 X10*3/uL (0.0-0.4); Eosinophils Percent Auto 0.7 % (0-4); Hematocrit 41.9 % (42.0-52.0); Hemoglobin 14.3 g/dl (14.0-18.0); Imm Gran Abs Auto 0.06 X10*3/uL (0.00-0.03); Imm Gran Pct Auto 0.4 % (0.0-0.4); Lymphocytes Percent Auto 21.9 % (20-40); Mean Corpuscular HGB Conc 34.1 g/dl (31.0-36.0); Mean Platelet Volume 9.2 fL (9.4-12.4); Monocytes Absolute Auto 1.2 X10*3/uL (0.1-1.2); Monocytes Percent Auto 8.8 % (2-11); Neutrophils Absolute Auto 9.2 x10*3/uL (2.0-8.3); Platelet Count 190 X10*3/uL (160-400); Red Blood Count 4.76 X10*6/uL (4.60-5.80); Red Cell Distribution Width 12.6 % (11.0-16.0); White Blood Count 13.6 X10*3/uL (4.8-10.8)
[2025-03-09 08:59] LABS: Anion Gap 11 (12-20); Blood Urea Nitrogen 12 mg/dL (9-16); C Reactive Protein 14.56 mg/dL (< or = 0.50); Calcium 9.4 mg/dL (8.4-10.2); Carbon Dioxide 27 mmol/L (22-29); Chloride 104 mmol/L (96-108); Creatinine Clr Calc Pharmacy 99.9; Estimated Glomerular Filt Rate 58; Glucose Random 219 mg/dL (60-115); Potassium 4.7 mmol/L (3.3-5.1); Sodium 137 mmol/L (135-145)
--- NOTE | 2025-03-09 09:08 | PC.NURSE ---
right elbow is red, swollen, warm to touch. pt states he fell from ladder 30 years ago and has had intermittent pain/swelling since then but never this bad. limited ROM.
[2025-03-09 09:33] LABS: Erythrocyte Sedimentation Rate 28 MM/HR (0-15)
--- NOTE | 2025-03-09 09:41 | ED_ITS ---
HPI - Extremity Problem General Chief complaint: Extremity Injury, Upper Stated complaint: elbow pain Time Seen by Provider: 03/09/25 09:41 Source: patient and family Mode of arrival: ambulatory Limitations: no limitations History of Present Illness ED Provider: HPI Narrative: 54-year-old male presenting with right elbow pain and swelling and redness as well. He is diabetic, has had history of recurrent bursitis, no fevers or chills, he felt some malaise, this is a going for the past 2 days. He is here with his . Denies trauma. Able to fully straighten out his elbow with some discomfort. MD Complaint: extremity pain Related Data Home Medications ?Medication ?Instructions ?Recorded ?Confirmed benazepril 40 mg tablet 1 tab PO DAILY 11/10/22 11/10/22 glipizide 5 mg-metformin 500 mg 1 tab PO BID 11/10/22 11/10/22 tablet hydrochlorothiazide 25 mg tablet 1 tab PO DAILY 11/10/22 11/10/22 Previous Rx's ?Medication ?Instructions ?Recorded amoxicillin 500 mg-potassium 1 tab PO Q12H 7 days #14 tabs 11/11/22 clavulanate 125 mg tablet (Augmentin) prednisone 20 mg tablet 40 mg (2 x 20 mg) PO DAILY 7 days 11/11/22 #14 tabs cephalexin 500 mg capsule 500 mg PO QID 10 days #40 caps 03/09/25 oxycodone 5 mg tablet 5 mg PO Q6H PRN pain #10 tabs 03/09/25 Allergies Allergy/AdvReac Type Severity Reaction Status Date / Time albuterol Allergy Swelling Verified 03/09/25 08:15 Review of Systems 2 Constitutional: Constitutional: Reports as per [facility] Social History Social History Household Members: Family Housing: House Do you presently have visiting nurse or other home services: No Patient Tobacco Use Status: Current everyday Tobacco user Smoked in Last 30 Days: Yes Use of substances other than those prescribed or required for medical reasons: No Substance Use Type: Marijuana Advance Directives: No Advance Directives Information Provided: No Do you have a plan to hurt others: No Plan Physical Exam 2 Vital Signs: Vital Signs: Last Vital Signs Temp 97.6 F 03/09/25 10:21 Pulse 83 03/09/25 10:21 Resp 19 03/09/25 10:21 BP 111/59 L 03/09/25 10:21 Pulse Ox 95 03/09/25 10:21 O2 Del Method Room Air 03/09/25 10:21 BMI result Body Mass Index 37.7 Const: Other: Overweight male, looks slightly older than stated age He is alert and oriented x4 moving upper and lower extremities symmetrically with discomfort in his right elbow Picture of right elbow was attached, he was able to fully straighten out his elbow with some discomfort, there is surrounding erythema, swelling olecranon bursa, compartments are soft Full range of motion of the shoulder Medications Administered Discontinued Medications Generic Name Dose Route Start Last Admin Trade Name Freq PRN Reason Stop Dose Admin Ceftriaxone Sodium 2 gm 03/09/25 10:03 03/09/25 11:21 Ceftriaxone Sodium 2 Gm Vial IVPUSH 03/09/25 10:04 2 gm ONCE ONE Administration Ketorolac Tromethamine 15 mg 03/09/25 10:10 03/09/25 11:21 Ketorolac Tromethamine 15 Mg/Ml Vial IVPUSH 03/09/25 10:11 15 mg ONCE ONE Administration Morphine Sulfate 4 mg 03/09/25 10:10 03/09/25 11:21 Morphine Sulfate 4 Mg/Ml Cartridge IVPUSH 03/09/25 10:11 4 mg ONCE ONE Administration Protocol Medical Decision Making Medical Decision Making [facility] Narrative: Patient is presenting with cellulitis and olecranon bursitis which is also likely infected, he has overlying cellulitis so aspiration with cellulitis is somewhat contraindicated so I am not going to perform that, he does have inflammatory markers that are high as well, x-ray with prior arthritic changes and old fracture that is not heal this is when he was 13 years old, there is no hardware on the x-rays, as he is not tachycardic, febrile our current recommendations, on surgical intervention incision, drainage or bursectomy is reserved for severe or refractory recurrent cases, I sent patient's information to physician visitor services assistant from Orthopedics who has not yet reply to my text, I feel comfortable that patient we will do well in the outpatient basis and if I do not hear from ortho I am going to have him come back in the next 72 hours to emergency department for re-evaluation with return precautions earlier. That as the current plan. This has been discussed with the patient and his they feel comfortable with it. 13:06, patient we will follow up with Orthopedics, Elissa anthony Differential Diagnosis Differential Diagnoses: The differential diagnosis associated with the presentation includes Septic joint, septic bursitis, cellulitis, systemic sepsis, trauma Admission/Observation Consideration of admission/observation: Escalation of care including admission/observation considered Lab Data 03/09/25 08:32 03/09/25 08:32 Labs: Lab Results 03/09/25 Range/Units 08:32 WBC 13.6 H (4.8-10.8) X10*3/uL RBC 4.76 (4.60-5.80) X10*6/uL Hgb 14.3 (14.0-18.0) g/dl Hct 41.9 L (42.0-52.0) % MCV 88.0 (80.0-98.0) fL MCH 30.0 (27.0-33.0) pg MCHC 34.1 (31.0-36.0) g/dl RDW 12.6 (11.0-16.0) % Plt Count 190 (160-400) X10*3/uL MPV 9.2 L (9.4-12.4) fL Immature Gran % (Auto) 0.4 (0.0-0.4) % Neut % (Auto) 68.0 (45-73) % Lymph % (Auto) 21.9 (20-40) % Putnam % (Auto) 8.8 (2-11) % Eos % (Auto) 0.7 (0-4) % Baso % (Auto) 0.2 (0-2) % Lymph # (Auto) 3.0 (1.2-4.9) X10*3/uL [place] # (Auto) 1.2 (0.1-1.2) X10*3/uL Eos # (Auto) 0.1 (0.0-0.4) X10*3/uL Baso # (Auto) 0.0 (0.0-0.2) X10*3/uL Abs Immat Gran (auto) 0.06 H (0.00-0.03) X10*3/uL Absolute Neuts (auto) 9.2 H (2.0-8.3) x10*3/uL Absolute Nucleated RBC 0.000 (0.0-0.012) X10*3/uL Nucleated RBC % (auto) 0.0 (0.0-0.2) /100WBC ESR 28 H (0-15) MM/HR Sodium 137 (135-145) mmol/L Potassium 4.7 (3.3-5.1) mmol/L Chloride 104 (96-108) mmol/L Carbon Dioxide 27 (22-29) mmol/L Anion Gap 11 L (12-20) BUN 12 (9-16) mg/dL Creatinine 1.28 (0.5-1.4) mg/dL Estim Creat Clear Calc 99.9 Estimated GFR 58 Random Glucose 219 H (60-115) mg/dL Calcium 9.4 D (8.4-10.2) mg/dL C-Reactive Protein 14.56 H (< or = 0.50) mg/dL Discharge Plan Discharge Clinical Impression: Septic olecranon bursitis of right elbow Patient Disposition: Home, Self-Care Instructions: Elbow Bursitis (ED) Additional Instructions: I would like you to make an appointment with a hand specialist Dr. Shi, continue with antibiotics starting tomorrow 500 mg 4 times a day for the next 10 days, Tylenol 975 mg every 6 hours as needed for pain with oxycodone only if the other medication is not working, ice the area, make sure to avoid leaning on it, significant spreading redness over your arm either up or down you should come back to the ER for evaluation, it will take antibiotics a few days up to 72 hours actually to start working so persistence of redness and even slight increase in redness size is still expected, however refused spike fevers you feel worse you develop chills come back to the ER. Prescriptions: New cephalexin 500 mg capsule 500 mg PO QID 10 Days Qty: 40 0RF oxycodone 5 mg tablet 5 mg PO Q6H PRN (Reason: pain) Qty: 10 0RF Rx Instructions: Partial Fill upon patient request. No Action hydrochlorothiazide 25 mg tablet 1 tab PO DAILY benazepril 40 mg tablet 1 tab PO DAILY glipizide-metformin 5-500 mg tablet 1 tab PO BID amoxicillin-pot clavulanate [Augmentin] 500-125 mg tablet 1 tab PO Q12H 7 Days Qty: 14 0RF prednisone 20 mg tablet 40 mg PO DAILY 7 Days Qty: 14 0RF Referrals: Meka Shi MD [Physician] - 1 week Print Language: [place] Leone[place]
[2025-03-09 10:21] VITALS: BP 111/59; PULSE 83; RESP 19; TEMP 36.4; O2SAT 95
[2025-03-09] MEDS: Ketorolac Tromethamine 15 MG/ML VIAL IVPUSH (11:21)
[2025-03-09] MEDS: Morphine Sulfate 4 MG/ML CARTRIDGE IVPUSH (11:21)
[2025-03-09] MEDS: cefTRIAXone sodium 2 GM VIAL IVPUSH (11:21)
[2025-03-09 13:21] VITALS: BP 115/70; PULSE 98; RESP 19; TEMP 36.7; O2SAT 98
[2025-03-09 13:22] VITALS: BP 115/70; PULSE 98; RESP 19; TEMP 36.7; O2SAT 98
== END 2025-03-09 13:25 | disposition home or self-care (01) ==
PROVIDERS: Emergency Provider Emergency Medicine; PCP Internal Medicine
DX: M70.21 Olecranon bursitis, right elbow (principal); Y93.9 Activity, unspecified; M25.521 Pain in right elbow; E11.9 Type 2 diabetes mellitus without complications; Z79.899 Other long term (current) drug therapy
CPT/HCPCS: 36415; 73080; 80048; 85025; 85652; 86140; 96374; 96375; 99284; J0696; J1885; J2270

== ENCOUNTER 2025-03-27 14:46 | Outpatient (AMB) | payer OTHER, SELFPAY ==
[2025-03-27 14:58] VITALS: BMI 37.7
--- NOTE | 2025-03-27 14:58 | A.OFFVIS_ITS ---
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 Per ED note, patient has history of recurrent bursitis. States he woke up with a lump on his elbow. He expresses swelling, tenderness and redness of the right elbow. States he was given ABX at his ED visit as well as pain medication. Patient recalls fracturing his elbow when he was 13 yrs old where surgery was done, at age 28 he fell 10-12 ft and his elbow was smashed on a pallet. Hx of elbow bursitis. Hx of diabetes.k Accompanied by: Shaniqua spouse Allergies albuterol Allergy (Verified 03/27/25 15:03) Swelling HPI HPI OTR FLATBED DRIVER: olecranon bursitis, rt elbow: Details: Eladio is a 54 year old right hand dominant male who presents today as a new patient [place] [facility] [place] for his septic olecranon bursitis of right elbow. Per ED note, patient has history of recurrent bursitis. States he woke up with a lump on his elbow. He expresses swelling, tenderness and redness of the right elbow. States he was given ABX at his ED visit as well as pain medication. Redness and swelling have both improved significantly since ED visit, per the patient. Patient recalls fracturing his elbow when he was 13 yrs old where surgery was done, at age 28 he fell 10-12 ft and his elbow was smashed on a pallet. Hx of elbow bursitis. Hx of diabetes.k [facility] Social History Household Members: Family Housing: House Do you presently have visiting nurse or other home services: No Patient Tobacco Use Status: Current everyday Tobacco user Substance Use Type: Marijuana Review of Systems Const All systems reviewed & are unremarkable except as noted in HPI and below Physical Exam Vital Signs: BMI result Body Mass Index 37.7 Extrem Other: Patient's right elbow swollen and very slightly erythematous on inspection No lacerations, abrasions, open areas No evidence of infection Patient reports no tenderness to palpation of the right olecranon bursa Range of motion of the right elbow full, intact, painless Distal sensation intact Capillary refill brisk Assessment & Plan Assessment & Plan (1) Septic olecranon bursitis of right elbow: Code(s): M71.121 - Other infective bursitis, right elbow Category: Medical Plan 1. Septic olecranon bursitis of right elbow Patient is educated about this condition Patient is educated about the typical treatment course At this time, patient is informed that we try all efforts to treat this condition conservatively, as there is a high-risk of complication for draining of the olecranon bursa Patient is also educated that has very reassuring that he has had significant improvement since being placed on antibiotics Due to trace erythema remaining, antibiotics are refilled Patient is amenable to this plan Follow-up in 1-2 week for reassessment, sooner with any acute concerns Medications: Refilled cephalexin 500 mg PO QID 40 caps 0RF 10 days Discontinued amoxicillin-pot clavulanate 500-125 mg Discontinued Reason: Patient Completed Course 1 tab PO Q12H 7 days 14 tabs 0RF cephalexin Discontinued Reason: Patient Completed Course 500 mg PO QID 10 days 40 caps 0RF Coding Level of Care Code New Pt Level 3 (67454) Diagnoses Septic olecranon bursitis of right elbow M71.121
--- OUTSIDE RECORDS SUMMARY | 2025-03-27 17:57 | XMS_ITS | Data Portability ---
Author Organization [place] - [facility], Allergy Address [address] [address] Care Team Providers Care Master Black Belt Name Role Phone DAMARI PRINGLE Primary Care Provider Assessment Encounter Date Assessment Date Assessment LastModified by Organization Details LastModified Time 07/10/2024 07/10/2024 51 year-old male with nursing home smoking history and DM presents for right-sided hearing loss and tinnitus. Otologic exam demonstrates TMs are intact. Left TM has a well-aerated middle ear space. Right TM is immobile with serous effusion. Audiogram shows mild to moderately-severe conductive hearing loss and Type B tympanometry in right ear. Left ear demonstrates essentially normal hearing. Flexible laryngoscopy demonstrated normal nasal mucosa, eustachian tube opening, and nasopharynx without obvious mass, polyp, or infection. Recommended CT with contrast to rule out submucosal nasopharyngeal mass. Recommended auto-insufflation 10 times daily, Afrin 2 sprays daily for 3 days, and Flonase 2 sprays daily until hearing returns to baseline. He is not a candidate for hearing aids at this time. He will follow up in 3 months with surgeon with HTF for evaluation of right myringotomy tube if fluid persists, or sooner with any concerns. [email or web address] Not available 07/10/2024 11:34:02 Plan of Treatment Reminders Order Date Submit Date Provider Last Modified By Organization Details Last Modified Time Details Appointments None recorded. Lab None recorded. Referral None recorded. Procedures None recorded. Surgeries None recorded. Imaging CT, neck, w/ contrast 2023 024 [email or web address] [facility] [place], [address] [facility], [address], [place], [address], 10:05:11 Medication Orders None recorded. Patient TargetsNo targets recorded. Patient InstructionsNo instructions recorded. Reason for Referral None Reported. Results Created Date Observation Date Name Description Value Unit Range Abnormal Flag Note LastModifiedBy Organization Detail LastModifiedTime 07/29/2007/30/2024 BUN BUN 12 mg/dL 6-24 normal Not Available [facility] ([facility]) [address] [facility], [place], [address], 07/30/2024 03:12:39 07/29/2007/30/2024 CREAT ININE creatinine 1.03 mg/dL 0.76-1 .27 normal Not Available [facility] ([facility]) [address] [facility], [place], [address], 07/30/2024 03:12:40 07/29/2007/30/2024 CREAT ININE eGFR 86 mL/mi n/1.7 3 >59 normal Not Available [facility] ([facility]) [address] [facility], [place], [address], 07/30/2024 03:12:40 07/10/20 audio gram No observ ation record ed. [email or web address] Not Available 06/2024 12:30:45 08/03/20 24 08/02/2024 CT, neck, soft tissu e, w/ contr ast No observ ation record ed. [email or web address] [facility] [place] [address], [address], 08/05/2024 09:29:06 Result Notes None recorded. Problems Name Problem SNOMED Code Status Onset Date Resolution Date Notes Provider Name and Address Organization Details Recorded Time Mixed conductive AND sensorineur al hearing loss 95407884 Active 2023 MYA GRANT [address] [address], [place], [address], [facility] - [facility] 10:27:42 Sensorineur al hearing loss 48416105 Active 2023 MYA GRANT [address] [address], [place], [address], [facility] - [facility] 10:27:49 Tinnitus of right ear 2477193028293 Active 2023 GAY SANTANA PA-C [address] [facility], [place], [address], [facility] - [facility] 4 11:31:09 Bilateral tinnitus 6536190778385 Active 2023 GAY SANTANA PA-C [address] [facility], [place], [address], [facility] - [facility] 4 11:31:17 Chronic serous otitis media of left ear 646495981 Active 2023 BO MOJICA PA-C [address] [facility], [place], [address], [facility] - [facility] 11:58:29 Chronic serous otitis media of right ear 874596553 Active 2023 BO MOJICA PA-C [address] [facility], [place], [address], [facility] - [facility] 11:58:39 Problem Notes None recorded. Procedures Surgical History Date Name Laterality Status Provider Name and Address Organization Details Recorded Time 07/10/2024 Comp Audio with Tymps - 91437 & 15617 completed MYA GRANT 100 [facility],[address], [address], [facility] 07/10/2024 10:17:14 07/10/2024 FOL_DP completed BO MOJICA PA-C 100 [facility],[address], [address], [facility] 07/10/2024 11:57:14 Imaging Results None recorded. Procedure Notes None recorded. Medical Equipment None Reported. Medications Name Sig Start Date Stop Date Status Note LastModified by Organization Details LastModified Time atorvastati n 80 mg tablet TAKE 1 TABLET BY MOUTH ONCE DAILY active Not Available Not Available No t Available carvedilol 25 mg tablet TAKE 1 TABLET BY MOUTH TWICE DAILY WITH FOOD active Not Available Not Available No t Available carvedilol 12.5 mg tablet TAKE 1 TABLET BY MOUTH TWICE DAILY active Not Available Not Available No t Available isosorbide mononitrate ER 30 mg tablet,exte nded release 24 hr TAKE 1 TABLET BY MOUTH ONCE DAILY IN THE MORNING active Not Available Not Available No t Available clobetasol 0.05 % topical cream APPLY CREAM TOPICALLY TO AFFECTED AREAS ON ARMS, TRUNK, AND LEGS TWICE DAILY NEEDED FOR FLARES. DECREASE TO ONCE DAILY OR ONCE EVERY OTHER DAY SYMPTOMS IMPROVE active Not Available Not Available No t Available clopidogrel 75 mg tablet TAKE 1 TABLET BY MOUTH ONCE DAILY active Not Available Not Available No t Available cephalexin 500 mg capsule TAKE 1 CAPSULE BY MOUTH TWICE DAILY FOR 5 DAYS 07/10 completed Not Available Not Available Not Available tacrolimus 0.1 % topical ointment APPLY OINTMENT EXTERNALL Y TO AFFECTED AREA TWICE DAILY ON ARMS AND LEGS ALTERNATI NG WITH TOPICAL STEROIDS active Not Available Not Available No t Available calcipotrie ne 0.005 % topical cream APPLY TOPICALLY TO ARMS, TRUNK AND LEGS TWICE DAILY ALTERNATI NG WITH TOPICAL STEROIDS active Not Available Not Available No t Available nitroglycer in 0.4 mg sublingual tablet DISSOLVE ONE TABLET UNDER THE TONGUE EVERY 5 MINUTES NEEDED FOR CHEST PAIN. DO NOT EXCEED A TOTAL OF 3 DOSES IN 15 MINUTES active Not Available Not Available No t Available betamethaso ne, augmented 0.05 % topical ointment APPLY TOPICALLY TO AFFECTED AREA ON ARMS AND LEGS TWICE DAILY NEEDED FOR FLARES. DECREASE USE SYMPTOMS IMPROVE active Not Available Not Available No t Available benazepril 40 mg tablet TAKE 1 TABLET BY MOUTH ONCE DAILY active Not Available Not Available No t Available amoxicillin 875 mg-potassiu m clavulanate 125 mg tablet TAKE 1 TABLET BY MOUTH TWICE DAILY 07/10 completed Not Available Not Available Not Available glipizide 5 mg-metformi n 500 mg tablet TAKE 1 TABLET BY MOUTH TWICE DAILY active Not Available Not Available No t Available Vtama 1 % topical cream APPLY TO AFECTED AREA ONCE DAILY NEEDED FOR FLARES active Not Available Not Available No t Available Vitals Date Recorded Body height Body mass index (BMI) Body weight Provider Name and Address Organization Details Last Updated DateTime 07/10/2024 190.5 cm 38.7 kg/m2 877794.63 g Leilani Marquita [place] - [facility] 07/10/2024 10:31:53 Social History None recorded. Functional Status None recorded. Mental Status None recorded. Family History Nothing Reported. Medical History No medical history recorded. Past Encounters Encounter ID Performer Location Encounter Start Date Encounter Closed Date Diagnosis/Indication Diagnosis SNOMED-CT Code Diagnosis ICD10 Code Diagnosis Note [id number] BO MOJICA PA-C [facility] [address] [address] 07/10/2024 09:59:09 07/10/2024 12:26:46 Mixed conductive AND sensorineural hearing loss 66562626 H90.A31 Audiologic al evaluation results:Ri ght ear:Mild to moderately -severe conductive hearing loss with excellent word recognitio n.Left ear:Normal sloping to mild sensorineu ral hearing loss with excellent word recognitio n.Tympanom etry:Right Ear:Type BLeft Ear:Type A Bilateral tinnitus 50471 70566 102 H93.13 Chronic se lexi otitis media of right ear 819288749 H65.21 Health Concerns Section Related Observation LastModified by Organization Detai ls LastModified Time None Recorded Concern Status LastModified by Organization Details LastModified Time None Recorded Advance Directives Directive None Recorded Payers Insurance Date Sequence Insurance Name Policy Number Policy Caballero Covered Member ID Caballero Member ID Guarantor Name 07/10/2024 1 [facility] [employer] - DIRECT - [place] (HMO) [id number] Eladio Durbin [id number] 1 Eladio Durbin Notes Date Note Type Note Provider Name and Address Organization Details Recorded Time 07/10/2024 text/html 53 year-old with presents for evaluation of the ears. He reports right-sided hearing loss and tinnitus after a sinus infection two years ago that has persisted since. The right ear tinnitus is high-pitched and constant. He endorses similar tinnitus in his left ear for two months. He occasionally hears hears his heartbeat when he lays down. The right-sided hearing loss is described as muffled. His family tells him that he is mumbling and he feels he is talking loudly. He can ignore the tinnitus if he doesn't think about it. Denies otalgia, otorrhea, vertigo, unintentional weight loss, nose bleeds, or nasal congestion. Denies prior history of ear infections in adulthood or ear surgeries. 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 Occasional Qtip use. No previous hearing test. He smokes 1 PPD. BO MOJICA PA-C [address] [place] [address], [address], [facility] - [facility] 07/10/2024 11:59:57
== END 2025-03-27 15:12 | disposition home or self-care (01) ==
LOC: HO.HOS 14:47
PROVIDERS: PCP Internal Medicine
DX: M71.121 Other infective bursitis, right elbow (principal)
CPT/HCPCS: 99203

== ENCOUNTER → 2025-03-27 14:46 | Outpatient (BNVA) | payer OTHER, SELFPAY | PROVIDERS: PCP Internal Medicine | DX: M25.421 Effusion, right elbow (principal); M71.121 Other infective bursitis, right elbow | CPT/HCPCS: 99202 ==

== ENCOUNTER 2025-04-09 15:21 | Outpatient (AMB) | payer OTHER, SELFPAY ==
--- NOTE | 2025-04-09 15:22 | A.OFFVIS_ITS ---
Intake Visit Reasons: OV - Right Olecranon Bursitis Intake Note: Eladio is a 54 year old right hand dominant male who presents today for a follow up of his right elbow bursitis. He was given an Rx of Cephalexin. Patient reports that he is doing well , he has not concerns at this time. His pain is resolved. Denies numbness and tingling. He missed a few doses of his Antibiotics - he has a few pills left that he will continue to take. Allergies albuterol Allergy (Verified 04/09/25 15:27) Swelling HPI HPI OV - Right Olecranon Bursitis: Details: Eladio is a 54 year old right hand dominant male who presents today for a follow up of his right elbow bursitis. He was given an Rx of Cephalexin. Patient reports that he is doing well , he has not concerns at this time. His pain is r esolved. Denies numbness and tingling. He missed a few doses of his Antibiotics - he has a few pills left that he will continue to take. [facility] Social History Household Members: Family Housing: House Do you presently have visiting nurse or other home services: No Patient Tobacco Use Status: Current everyday Tobacco user Substance Use Type: Marijuana Review of Systems Const All systems reviewed & are unremarkable except as noted in HPI and below Physical Exam Extrem Other: Patient's right elbow slightly swollen, no longer erythematous No lacerations, abrasions, open areas No evidence of infection Patient reports no tenderness to palpation of the right olecranon bursa Range of motion of the right elbow full, intact, painless Distal sensation intact Capillary refill brisk Assessment & Plan Assessment & Plan (1) Septic olecranon bursitis of right elbow: Code(s): M71.121 - Other infective bursitis, right elbow Category: Medical Plan 1. Septic olecranon bursitis of right elbow Patient is educated about this condition Patient is educated about the typical treatment course At this time, patient is informed that we try all efforts to treat this condit ion conservatively, as there is a high-risk of complication for draining of the olecranon bursa Patient should finish current course of antibiotics Patient is amenable to this plan Follow-up as needed with any acute concerns Coding Level of Care Code Est Pt Level 3 (94080) Diagnoses Septic olecranon bursitis of right elbow M71.121
--- OUTSIDE RECORDS SUMMARY | 2025-04-09 15:31 | XMS_ITS | Data Portability ---
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 Patient TargetsNo targets recorded. Patient InstructionsNo instructions recorded. Reason for Referral None Reported. Results Created Date Observation Date Name Description Value Unit Range Abnormal Flag Note LastModifiedBy Organization Detail LastModifiedTime 07/29/2007/30/2024 BUN BUN 12 mg/dL 6-24 normal Not Available [facility] ([facility]) [address] [facility], [place], [address], 07/30/2024 03:12:39 07/29/2007/30/2024 CREAT ININE creatinine 1.03 mg/dL 0.76-1 .27 normal Not Available [facility] ([facility]) [address] [facility], [place], [address], 07/30/2024 03:12:40 07/29/2007/30/2024 CREAT ININE eGFR 86 mL/mi n/1.7 3 >59 normal Not Available [facility] ([facility]) [address] [facility], [place], [address], 07/30/2024 03:12:40 07/10/20 audio gram No observ ation record ed. [email or web address] Not Available 06/2024 12:30:45 08/03/20 24 08/02/2024 CT, neck, soft tissu e, w/ contr ast No observ ation record ed. [email or web address] [facility] [place] [address], [address], 08/05/2024 09:29:06 Result Notes None recorded. Problems Name Problem SNOMED Code Status Onset Date Resolution Date Notes Provider Name and Address Organization Details Recorded Time Mixed conductive AND sensorineur al hearing loss 32739854 Active 2023 MYA GRANT [address] [address], [place], [address], [facility] - [facility] 10:27:42 Sensorineur al hearing loss 98330558 Active 2023 MYA GRANT [address] [address], [facility] [place], [address], [facility] - [facility] [place] 4 10:27:49 Tinnitus of right ear 0407618072154 Active 2023 GAY SANTANA PA-C [address] [facility], [place], [address], [facility] - [facility] [place] 4 11:31:09 Bilateral tinnitus 2124899058892 Active 2023 GAY SANTANA PA-C [address] [facility], [place], [address], [facility] - [facility] [place] 4 11:31:17 Chronic serous otitis media of left ear 668094215 Active 2023 BO MOJICA PA-C [address] [facility], [place], [address], [facility] - [facility] [place] 4 11:58:29 Chronic serous otitis media of right ear 078136097 Active 2023 BO MOJICA PA-C [address] [facility], [place], [address], [facility] - [facility] 11:58:39 Problem Notes None recorded. Procedures Surgical History Date Name Laterality Status Provider Name and Address Organization Details Recorded Time 07/10/2024 Comp Audio with Tymps - 31873 & 61544 completed MYA GRANT 100 [facility],[address], [address], [facility] 07/10/2024 10:17:14 07/10/2024 FOL_DP completed BO MOJICA PA-C 100 [facility],[address], [address], [facility] 07/10/2024 11:57:14 Imaging Results None recorded. Procedure [...] Updated DateTime 07/10/2024 190.5 cm 38.7 kg/m2 098331.63 g Leilani Marquita [place] - [facility] 07/10/2024 10:31:53 Social History None recorded. Functional Status None recorded. Mental Status None recorded. Family History Nothing Reported. Medical History No medical history recorded. Past Encounters Encounter ID Performer Location Encounter Start Date Encounter Closed Date Diagnosis/Indication Diagnosis SNOMED-CT Code Diagnosis ICD10 Code Diagnosis Note [id number] BO MOJICA PA-C [facility] [address] [address] 07/10/2024 09:59:09 07/10/2024 12:26:46 Mixed conductive AND sensorineural hearing loss 71528412 H90.A31 Audiologic al evaluation results:Ri ght ear:Mild to moderately -severe conductive hearing loss with excellent word recognitio n.Left ear:Normal sloping to mild sensorineu ral hearing loss with excellent word recognitio n.Tympanom etry:Right Ear:Type BLeft Ear:Type A Bilateral tinnitus 82731 79146 102 H93.13 Chronic se lexi otitis media of right ear 649577549 H65.21 Health Concerns Section Related Observation LastModified by Organization Detai ls LastModified Time None Recorded Concern Status LastModified by Organization Details LastModified Time None Recorded Advance Directives Directive None Recorded Payers Insurance Date Sequence Insurance Name Policy Number Policy Caballero Covered Member ID Caballero Member ID Guarantor Name 07/10/2024 1 [facility] [employer] - DIRECT - [place] (HMO) [id number] Eladio Durbin [id number] 1 Eladio Durbin Notes Date Note Type [...] He smokes 1 PPD. BO MOJICA PA-C [address] [place] [address], [address], [facility] - [facility] 07/10/2024 11:59:57
== END 2025-04-09 15:45 | disposition home or self-care (01) ==
LOC: HO.HOS 15:22
PROVIDERS: PCP Internal Medicine
DX: M71.121 Other infective bursitis, right elbow (principal)
CPT/HCPCS: 99213

== ENCOUNTER → 2025-04-09 15:21 | Outpatient (BNVA) | payer OTHER, SELFPAY | PROVIDERS: PCP Internal Medicine | DX: M71.121 Other infective bursitis, right elbow (principal) | CPT/HCPCS: 99212 ==